=== PATIENT | female | born 1980 | race African-American/Black ===

== ENCOUNTER 2017-03-06 12:40 | Emergency (ER) | payer OTHER, MEDICAID ==
[~2017-03-06] VITALS: Ht 157.5 cm; Wt 63.5 kg
[2017-03-06 13:34] LABS: Urine Bilirubin Negative (Negative); Urine Blood Negative /uL (Negative); Urine Color Yellow (Yellow); Urine Glucose Normal (Normal); Urine Ketone Negative (Negative); Urine Mucus FEW (None Seen); Urine Nitrite Negative (Negative); Urine RBC 2 /hpf (0 - 4); Urine Squamous Epithelial Cell MOD /hpf (<5)
[2017-03-06] MEDS ORDERED: IPRATROPIUM BROM 0.5 MG/2.5ML INH SOL NEB ONE (16:00)
[2017-03-06] MEDS ORDERED: HYDROcodone-ACET 5/325MG TAB PO ONE (16:00)
[2017-03-06] MEDS ORDERED: ALBUTEROL SULF 2.5 MG/0.5ML(0.5%) NEB SOLN NEB ONE (16:00)
[2017-03-06 16:39] LABS: Basophils # (auto) 0 uL; Basophils % (auto) 0.2 % (0.0-2.0); DEFINITIVE VIEW TRANSMISSION; Eosinophils # (auto) 0 uL; Eosinophils % (auto) 0.3 % (0.0-7.0); Hematocrit 39.3 % (36.0-46.0); Hemoglobin 12.7 g/dL (12.2-16.2); Lymphocytes # (auto) 0.5 uL; Lymphocytes % (auto) 14.6 % (10.0-50.0); Mean Corpuscular Hemoglobin 26.9 pg (28.0-32.0); Mean Corpuscular Hgb Conc. 32.3 g/dL (32.0-36.0); Mean Corpuscular Volume 83.5 fL (80.0-100.0); Mean Platelet Volume 10.4 fL (7.4-10.4); Monocytes # (auto) 0 uL; Monocytes % (auto) 1.3 % (0.0-12.0); Neutrophils % (auto) 83.6 % (37.0-80.0); Platelet Count (auto) 448 10^3/uL (140-450); Red Cell Distribution Width 17.3 % (11.6-16.0); SUSPECT VIEW TRANSMISSION; White Blood Cell 3.6 10^3/uL (4.4-10.8)
[2017-03-06 16:41] VITALS: BP 129/96
[2017-03-06 16:51] LABS: Albumin 3.7 g/dL (3.4-5.0); Alkaline Phosphatase 81 U/L (45-117); Anion Gap 11 (5-15); Aspartate Aminotransferase 15 U/L (15-37); BUN/Creatinine Ratio 12.7; Bilirubin, Total 0.7 mg/dL (0.2-1.0); Blood Urea Nitrogen 10 mg/dL (7-18); Calcium 8.9 mg/dL (8.5-10.1); Carbon Dioxide 22 mmol/L (21-32); Chloride 109 mmol/L (98-107); GFR African American 105 mL/min; GFR Non-African American 87 mL/min; Glucose 95 mg/dL (74-106); Potassium 3.7 mmol/L (3.5-5.1); Sodium 142 mmol/L (136-145); Total Protein 7.6 g/dL (6.4-8.2)
[2017-03-06] MEDS ORDERED: KETOROLAC TROMETH 30 MG/ML 1ML VIAL IV ONE (17:00)
[2017-03-06 17:01] LABS: B-Type Natriuretic Peptide < 5.0 pg/mL (0-100); Temperature: 23.3 C (20.0-25.0)
== END 2017-03-06 17:39 | disposition home or self-care (01) ==
LOC: ER 12:46
DX: R07.89 Other chest pain (principal); J45.909 Unspecified asthma, uncomplicated
CPT/HCPCS: 36415; 71020; 80053; 81001; 81025; 83880; 84484; 85025; 93005; 94640; 96374; 99285; J1885

== ENCOUNTER 2017-10-01 20:54 | Emergency (ER) | payer OTHER, MEDICAID ==
[~2017-10-01] VITALS: Ht 157.5 cm; Wt 69.9 kg
[2017-10-01] MEDS ORDERED: IPRATROPIUM BROM 0.5 MG/2.5ML INH SOL NEB ONE ×2 (21:15→23:30)
[2017-10-01] MEDS ORDERED: ALBUTEROL SULF 2.5 MG/0.5ML(0.5%) NEB SOLN NEB ONE ×2 (21:15→23:30)
[2017-10-01 21:24] LABS: Basophils # (auto) 0.1 uL; Eosinophils # (auto) 0.1 uL; Eosinophils % (auto) 0.8 % (0.0-7.0); Monocytes # (auto) 1.1 uL
[2017-10-01 21:26] LABS: Basophils % (auto) 0.6 % (0.0-2.0); Hematocrit 34.7 % (36.0-46.0); Hemoglobin 11.3 g/dL (12.2-16.2); Lymphocytes # (auto) 2.3 uL; Lymphocytes % (auto) 14.8 % (10.0-50.0); Mean Corpuscular Hemoglobin 27.1 pg (28.0-32.0); Mean Corpuscular Hgb Conc. 32.5 g/dL (32.0-36.0); Mean Corpuscular Volume 83.3 fL (80.0-100.0); Monocytes % (auto) 7.3 % (0.0-12.0); Neutrophils # (auto) 11.9 uL; Neutrophils % (auto) 76.5 % (37.0-80.0); Platelet Count (auto) 228 10^3/uL (140-450); Red Cell Distribution Width 19.7 % (11.8-14.3); White Blood Cell 15.5 10^3/uL (4.4-10.8)
[2017-10-01 21:49] LABS: Albumin 3.6 g/dL (3.4-5.0); BUN/Creatinine Ratio 18.8; Bilirubin, Total 0.3 mg/dL (0.2-1.0); Calcium 8.2 mg/dL (8.5-10.1); Potassium 3.4 mmol/L (3.5-5.1); Total Protein 6.5 g/dL (6.4-8.2)
[2017-10-01] MEDS ORDERED: cefTRIAXone SOD 1,000 MG VL IM ONE (23:30)
[2017-10-01] MEDS ORDERED: methylPREDNISolone SOD SUCC 125 MG/2 ML VL IM ONE (23:30)
[2017-10-01 23:59] VITALS: BP 166/103
== END 2017-10-02 00:38 | disposition home or self-care (01) ==
LOC: ER 20:54
DX: J45.901 Unspecified asthma with (acute) exacerbation (principal); I10 Essential (primary) hypertension
CPT/HCPCS: 36415; 71010; 80053; 85025; 94640; 96372; 99285; J0696; J2930

== ENCOUNTER 2018-04-01 17:16 | Emergency (ER) | payer OTHER, MEDICAID ==
[~2018-04-01] VITALS: Ht 157.5 cm; Wt 70.3 kg
[2018-04-01 18:19] LABS: Basophils # (auto) 0.1 uL; Basophils % (auto) 0.6 % (0.0-2.0); Eosinophils # (auto) 0.1 uL; Monocytes # (auto) 0.5 uL; Nucleated Red Blood Cells % 0.1 %
[2018-04-01 18:21] LABS: Eosinophils % (auto) 0.9 % (0.0-7.0); Hematocrit 33.3 % (36.0-46.0); Hemoglobin 11.1 g/dL (12.2-16.2); Lymphocytes # (auto) 1.2 uL; Lymphocytes % (auto) 11.8 % (10.0-50.0); Mean Corpuscular Hemoglobin 26.6 pg (28.0-32.0); Mean Corpuscular Hgb Conc. 33.2 g/dL (32.0-36.0); Mean Corpuscular Volume 80.3 fL (80.0-100.0); Monocytes % (auto) 5.1 % (0.0-12.0); Neutrophils # (auto) 8.1 uL; Neutrophils % (auto) 81.6 % (37.0-80.0); Platelet Count (auto) 373 10^3/uL (140-450); Red Blood Cells 4.15 10^6/uL (4.0-5.20); Red Cell Distribution Width 19.6 % (11.8-14.3)
[2018-04-01 18:35] LABS: Albumin 3.4 g/dL (3.4-5.0); BUN/Creatinine Ratio 18.4; Calcium 8.2 mg/dL (8.5-10.1); Potassium 3.7 mmol/L (3.5-5.1)
[2018-04-01 18:36] LABS: INR 0.93 (0.9-1.15); Partial Thromboplastin Time 24.9 sec (23.78-33.04)
[2018-04-01 18:37] LABS: Bilirubin, Total 0.3 mg/dL (0.2-1.0); Total Protein 6.5 g/dL (6.4-8.2)
[2018-04-01 22:12] LABS: Urine Pregnacy Test Negative (Negative)
[2018-04-01 22:30] LABS: Amphetamine Screen, Urine NEGATIVE (NEGATIVE); Barbiturate Scree,Urine NEGATIVE (NEGATIVE); Benzodiazephine Screen, Urine NEGATIVE (NEGATIVE); Cannabinoid Screen, Urine NEGATIVE (NEGATIVE)
[2018-04-01] MEDS ORDERED: IPRATROPIUM BROM 0.5 MG/2.5ML INH SOL NEB ONE ×2 (22:30→23:30)
[2018-04-01] MEDS ORDERED: ONDANSETRON HCL 4 MG/2 ML VIAL IV ONE (22:30)
[2018-04-01] MEDS ORDERED: MORPHINE SULFATE 4 MG/ML SYR/VIAL IV ONE (22:30)
[2018-04-01] MEDS ORDERED: ALBUTEROL SULF 2.5 MG/0.5ML(0.5%) NEB SOLN NEB ONE ×2 (22:30→23:30)
[2018-04-01 22:38] LABS: Alcohol, Urine < 3.0 mg/dL (0-5); Cocaine Screen, Urine NEGATIVE (NEGATIVE); Opiate Scree,Urine NEGATIVE (NEGATIVE); Phencyclidine Screen, Urine POSITIVE (NEGATIVE)
[2018-04-01] MEDS ORDERED: HYDROcodone-ACET 10/325MG TAB PO ONE (22:45)
[2018-04-01] MEDS ORDERED: methylPREDNISolone SOD SUCC 125 MG/2 ML VL ONE (23:06)
[2018-04-01] MEDS ORDERED: FAMOTIDINE 20 MG TAB PO ONE (23:15)
[2018-04-01] MEDS ORDERED: cefTRIAXone 1GM/10ml IVPUSH 10 ML IV ONE (23:15)
[2018-04-01] MEDS ORDERED: methylPREDNISolone SOD SUCC 125 MG/2 ML VL IV ONE (23:15)
[2018-04-01] MEDS ORDERED: SODIUM CHLORIDE 0.9% 1,000 ML IV ONE (23:15)
[2018-04-02] MEDS ORDERED: MEPERIDINE HCL (25 MG/ML) 1ML VIAL ONE (00:41)
[2018-04-02] MEDS ORDERED: NALBUPHINE HCL 10 MG/1ml INJECTION IV ONE (00:45)
[2018-04-02] MEDS ORDERED: MEPERIDINE HCL (25 MG/ML) 1ML VIAL IV ONE (00:45)
[2018-04-02 02:10] VITALS: BP 146/87
== END 2018-04-02 02:30 | disposition home or self-care (01) ==
LOC: ER 17:16
DX: J20.9 Acute bronchitis, unspecified (principal); J45.909 Unspecified asthma, uncomplicated; R55 Syncope and collapse; M79.1 Myalgia
CPT/HCPCS: 36415; 70450; 71045; 80053; 80307; 81025; 82962; 84702; 85025; 85610; 85730; 93005; 94640; 96374; 96375; 99285; J2175; J2930

== ENCOUNTER 2018-04-17 05:29 | Emergency (ER) | payer OTHER, MEDICAID ==
[~2018-04-17] VITALS: Ht 157.5 cm; Wt 69.9 kg
[2018-04-17] MEDS ORDERED: ALBUTEROL SULF 2.5 MG/0.5ML(0.5%) NEB SOLN NEB ONE ×2 (06:00→10:45)
[2018-04-17] MEDS ORDERED: IPRATROPIUM BROM 0.5 MG/2.5ML INH SOL NEB ONE (06:00)
[2018-04-17] MEDS ORDERED: cefTRIAXone 1GM/10ml IVPUSH 10 ML IV ONE (07:45)
[2018-04-17] MEDS ORDERED: methylPREDNISolone SOD SUCC 125 MG/2 ML VL IV ONE (07:45)
[2018-04-17] MEDS ORDERED: KETOROLAC TROMETH 30 MG/ML 1ML VIAL IV ONE (08:30)
[2018-04-17 11:06] VITALS: BP 129/103
== END 2018-04-17 11:27 | disposition home or self-care (01) ==
LOC: ER 05:35
DX: J45.901 Unspecified asthma with (acute) exacerbation (principal)
CPT/HCPCS: 71045; 94640; 96374; 96375; 99284; J1885; J2930

== ENCOUNTER 2018-06-22 11:28 | Inpatient (IN) | payer OTHER, MEDICAID ==
[~2018-06-22] VITALS: Ht 157.5 cm; Wt 80.5 kg
[2018-06-22] MEDS ORDERED: SODIUM CHLORIDE 0.9% 1,000 ML IV ONE (12:05)
[2018-06-22] MEDS ORDERED: ALBUTEROL SULF 2.5 MG/0.5ML(0.5%) NEB SOLN HHN ONE (12:15)
[2018-06-22] MEDS ORDERED: methylPREDNISolone SOD SUCC 125 MG/2 ML VL IV ONE (12:15)
[2018-06-22] MEDS ORDERED: IPRATROPIUM BROM 0.5 MG/2.5ML INH SOL HHN ONE (12:15)
[2018-06-22 12:27] LABS: Basophils # (auto) 0.1 uL; Eosinophils # (auto) 0.4 uL; Hematocrit 35.5 % (36.0-46.0); Hemoglobin 11.2 g/dL (12.2-16.2); Mean Corpuscular Hgb Conc. 31.6 g/dL (32.0-36.0)
[2018-06-22 12:29] LABS: Basophils % (auto) 1.2 % (0.0-2.0); Eosinophils % (auto) 5.1 % (0.0-7.0); Lymphocytes # (auto) 1.9 uL; Lymphocytes % (auto) 22.6 % (10.0-50.0); Mean Corpuscular Hemoglobin 24.9 pg (28.0-32.0); Mean Corpuscular Volume 78.8 fL (80.0-100.0); Monocytes # (auto) 0.8 uL; Monocytes % (auto) 9.8 % (0.0-12.0); Neutrophils # (auto) 5.2 uL; Neutrophils % (auto) 61.3 % (37.0-80.0); Nucleated Red Blood Cells % 0.1 %; Platelet Count (auto) 282 10^3/uL (140-450); Red Blood Cells 4.51 10^6/uL (4.0-5.20); Red Cell Distribution Width 19.4 % (11.8-14.3); White Blood Cell 8.5 10^3/uL (4.4-10.8)
[2018-06-22] MEDS ORDERED: MORPHINE SULF INJ 2 MG/ML SYRINGE 1ML IV ONE (12:30)
[2018-06-22] MEDS ORDERED: ONDANSETRON HCL 4 MG/2 ML VIAL IV ONE (12:30)
[2018-06-22 12:46] LABS: Alanine Aminotransferase 19 U/L (13-56); Albumin 3.7 g/dL (3.4-5.0); Alkaline Phosphatase 62 U/L (45-117); Anion Gap 7 (5-15); Aspartate Aminotransferase 10 U/L (15-37); BUN/Creatinine Ratio 10.8; Bilirubin, Total 0.2 mg/dL (0.2-1.0); Blood Urea Nitrogen 9 mg/dL (7-18); Calcium 7.7 mg/dL (8.5-10.1); Carbon Dioxide 22 mmol/L (21-32); Chloride 108 mmol/L (98-107); GFR African American 99 mL/min; GFR Non-African American 82 mL/min; Glucose 83 mg/dL (74-106); Magnesium 2.3 mg/dL (1.6-2.6); Potassium 3.4 mmol/L (3.5-5.1); Sodium 137 mmol/L (136-145); Total Protein 6.7 g/dL (6.4-8.2)
[2018-06-22] MEDS ORDERED: MORPHINE SULF INJ 2 MG/ML SYRINGE 1ML IV PRN (13:00)
[2018-06-22] MEDS ORDERED: NITROGLYCERIN 0.4 MG SL TAB SL PRN (13:00)
[2018-06-22] MEDS ORDERED: ACETAMINOPHEN 500 MG TAB PO PRN (13:00)
[2018-06-22] MEDS ORDERED: LACTULOSE 20Gm/30ML SOLN PO PRN (13:00)
[2018-06-22] MEDS: ENOXAPARIN SOD 40 MG/0.4 ML SYRINGE SC SCH (13:01)
[2018-06-22] MEDS: DOXYCYCLINE 100MG/250ML 250 ML IV SCH (13:09)
[2018-06-22] MEDS: PANTOPRAZOLE 40 MG TAB PO SCH (13:09)
[2018-06-22] MEDS: SODIUM CHLORIDE 0.9% 1,000 ML IV SCH (13:09)
[2018-06-22] MEDS: ALBUTEROL SULF 2.5 MG/0.5ML(0.5%) NEB SOLN NEB PRN (16:12)
[2018-06-22] MEDS: HYDROcodone-ACET 5/325MG TAB PO PRN (16:18)
[2018-06-22 17:47] VITALS: BP 141/83
[2018-06-22] MEDS: ALBUTEROL SULF 2.5 MG/0.5ML(0.5%) NEB SOLN NEB SCH (18:04)
[2018-06-22] MEDS: IPRATROPIUM BROM 0.5 MG/2.5ML INH SOL NEB SCH (18:04)
[2018-06-22] MEDS: methylPREDNISolone SOD SUCC 40 MG/ML VL IV SCH (18:21)
[2018-06-22] MEDS: BUDESONIDE (INHALATION) 0.5 MG/2 ML NEB NEB SCH (20:20)
[2018-06-22] MEDS: PROMETHAZINE HCL 25 MG/ML 1ML IV PRN ×2 (20:25→21:07)
[2018-06-22] MEDS: MORPHINE SULFATE 4 MG/ML SYR/VIAL IV PRN ×2 (20:25→21:08)
[2018-06-22 20:59] LABS: Urine Bacteria NONE SEEN /hpf (None Seen); Urine Blood Negative /uL (Negative); Urine Mucus FEW (None Seen); Urine Specific Gravity 1.013 (1.001-1.035); Urine WBC 6 /hpf (0 - 5)
[2018-06-23] MEDS: ALBUTEROL SULF 2.5 MG/0.5ML(0.5%) NEB SOLN NEB SCH ×4 (00:22→18:00)
[2018-06-23] MEDS: IPRATROPIUM BROM 0.5 MG/2.5ML INH SOL NEB SCH ×4 (00:22→18:00)
[2018-06-23] MEDS: DOXYCYCLINE 100MG/250ML 250 ML IV SCH (00:54)
[2018-06-23] MEDS: SODIUM CHLORIDE 0.9% 1,000 ML IV SCH ×2 (02:21→15:34)
[2018-06-23] MEDS: MORPHINE SULFATE 4 MG/ML SYR/VIAL IV PRN ×4 (05:39→23:21)
[2018-06-23] MEDS: BUDESONIDE (INHALATION) 0.5 MG/2 ML NEB NEB SCH ×2 (06:53→18:00)
[2018-06-23] MEDS: methylPREDNISolone SOD SUCC 40 MG/ML VL IV SCH ×4 (07:34→18:00)
[2018-06-23] MEDS: ENOXAPARIN SOD 40 MG/0.4 ML SYRINGE SC SCH (10:00)
[2018-06-23] MEDS: PROMETHAZINE HCL 25 MG/ML 1ML IV PRN (10:16)
[2018-06-23] MEDS: PANTOPRAZOLE 40 MG TAB PO SCH (10:17)
[2018-06-23] MEDS ORDERED: cefTRIAXone 1GM/10ml IVPUSH 10 ML IV ONE (10:30)
[2018-06-23] MEDS: ALBUTEROL SULF 2.5 MG/0.5ML(0.5%) NEB SOLN NEB PRN ×3 (10:40→22:06)
[2018-06-23] MEDS: PROMETHAZINE W/CODEINE 5 ML ORAL SYRUP PO PRN ×4 (11:07→23:21)
[2018-06-23] MEDS: HYDROcodone-ACET 5/325MG TAB PO PRN (16:51)
[2018-06-24] MEDS: methylPREDNISolone SOD SUCC 40 MG/ML VL IV SCH ×4 (00:45→18:08)
[2018-06-24] MEDS ORDERED: MORPHINE SULF INJ 2 MG/ML SYRINGE 1ML IV ONE (01:45)
[2018-06-24 03:40] VITALS: BP 142/85
[2018-06-24] MEDS: PROMETHAZINE W/CODEINE 5 ML ORAL SYRUP PO PRN ×4 (04:01→18:00)
[2018-06-24] MEDS: MORPHINE SULFATE 4 MG/ML SYR/VIAL IV PRN (04:02)
[2018-06-24] MEDS: PROMETHAZINE HCL 25 MG/ML 1ML IV PRN ×4 (04:02→21:12)
[2018-06-24] MEDS: ALBUTEROL SULF 2.5 MG/0.5ML(0.5%) NEB SOLN NEB PRN (04:17)
[2018-06-24] MEDS ORDERED: FLUT0.05 NAS (04:49)
[2018-06-24] MEDS ORDERED: DICY20TA66 PO (04:49)
[2018-06-24] MEDS ORDERED: OMEP20TA PO (04:49)
[2018-06-24] MEDS: SODIUM CHLORIDE 0.9% 1,000 ML IV SCH ×2 (04:51→18:12)
[2018-06-24 05:00] VITALS: BP 142/85
[2018-06-24] MEDS: HYDROcodone-ACET 5/325MG TAB PO PRN ×3 (05:23→18:00)
[2018-06-24] MEDS: ALBUTEROL SULF 2.5 MG/0.5ML(0.5%) NEB SOLN NEB SCH ×5 (06:54→23:05)
[2018-06-24] MEDS: IPRATROPIUM BROM 0.5 MG/2.5ML INH SOL NEB SCH ×5 (06:54→23:05)
[2018-06-24] MEDS: BUDESONIDE (INHALATION) 0.5 MG/2 ML NEB NEB SCH ×2 (06:54→18:57)
[2018-06-24] MEDS: cefTRIAXone 1GM/10ml IVPUSH 10 ML IV SCH (08:34)
[2018-06-24] MEDS: MORPHINE SULF INJ 2 MG/ML SYRINGE 1ML IV PRN ×4 (08:35→21:12)
[2018-06-24 09:13] VITALS: BP 133/79
[2018-06-24] MEDS: ENOXAPARIN SOD 40 MG/0.4 ML SYRINGE SC SCH (10:00)
[2018-06-24] MEDS: AZITHROMYCIN 500MG/ 250ML 250 ML IV SCH (10:20)
[2018-06-24] MEDS: PANTOPRAZOLE 40 MG TAB PO SCH (10:21)
[2018-06-24 13:00] VITALS: BP 131/75
[2018-06-24 16:58] VITALS: BP 99/69
[2018-06-24 22:01] VITALS: BP 151/94
[2018-06-25] MEDS: TEMAZEPAM 15 MG CAP PO PRN ×2 (00:01→21:51)
[2018-06-25] MEDS: HYDROcodone-ACET 5/325MG TAB PO PRN ×4 (00:01→07:55)
[2018-06-25] MEDS: PROMETHAZINE W/CODEINE 5 ML ORAL SYRUP PO PRN ×6 (00:02→20:42)
[2018-06-25] MEDS: PROMETHAZINE HCL 25 MG/ML 1ML IV PRN ×2 (03:18→09:44)
[2018-06-25] MEDS: MORPHINE SULF INJ 2 MG/ML SYRINGE 1ML IV PRN ×2 (03:19→09:43)
[2018-06-25 04:37] VITALS: BP 147/85
[2018-06-25] MEDS: methylPREDNISolone SOD SUCC 40 MG/ML VL IV SCH ×4 (06:00→17:35)
[2018-06-25] MEDS: ALBUTEROL SULF 2.5 MG/0.5ML(0.5%) NEB SOLN NEB SCH ×3 (06:41→18:31)
[2018-06-25] MEDS: IPRATROPIUM BROM 0.5 MG/2.5ML INH SOL NEB SCH ×3 (06:41→18:31)
[2018-06-25] MEDS: BUDESONIDE (INHALATION) 0.5 MG/2 ML NEB NEB SCH ×2 (06:41→18:31)
[2018-06-25 09:00] VITALS: BP 141/82
[2018-06-25] MEDS: cefTRIAXone 1GM/10ml IVPUSH 10 ML IV SCH (09:26)
[2018-06-25] MEDS: ENOXAPARIN SOD 40 MG/0.4 ML SYRINGE SC SCH (10:04)
[2018-06-25] MEDS: PANTOPRAZOLE 40 MG TAB PO SCH (10:04)
[2018-06-25] MEDS: AZITHROMYCIN 500MG/ 250ML 250 ML IV SCH (10:04)
[2018-06-25] MEDS: SODIUM CHLORIDE 0.9% 1,000 ML IV SCH ×2 (10:04→21:52)
[2018-06-25] MEDS ORDERED: HYDROcodone-ACET 5/325MG TAB PO PRN (12:30)
[2018-06-25 13:00] VITALS: BP 140/88
[2018-06-25] MEDS: MORPHINE SULFATE 4 MG/ML SYR/VIAL IV PRN ×3 (14:46→23:16)
[2018-06-25 17:00] VITALS: BP 156/105
[2018-06-25] MEDS ORDERED: DIPH25CA46 PO (20:37)
[2018-06-25 20:58] VITALS: BP 148/92
[2018-06-25] MEDS: ALBUTEROL SULF 2.5 MG/0.5ML(0.5%) NEB SOLN NEB PRN (21:26)
[2018-06-25] MEDS: diphenhdrAMINE HCL 25 MG CAP PO PRN (23:16)
[2018-06-25 23:46] VITALS: BP 148/92
[2018-06-26] MEDS: methylPREDNISolone SOD SUCC 40 MG/ML VL IV SCH ×4 (00:16→18:02)
[2018-06-26] MEDS: PROMETHAZINE HCL 25 MG/ML 1ML IV PRN ×3 (00:16→21:38)
[2018-06-26] MEDS: IPRATROPIUM BROM 0.5 MG/2.5ML INH SOL NEB SCH ×4 (00:29→18:50)
[2018-06-26] MEDS: ALBUTEROL SULF 2.5 MG/0.5ML(0.5%) NEB SOLN NEB SCH ×4 (00:29→18:50)
[2018-06-26] MEDS: MORPHINE SULFATE 4 MG/ML SYR/VIAL IV PRN ×5 (03:04→21:38)
[2018-06-26] MEDS: ALBUTEROL SULF 2.5 MG/0.5ML(0.5%) NEB SOLN NEB PRN ×3 (03:15→21:00)
[2018-06-26] MEDS: diphenhdrAMINE HCL 25 MG CAP PO PRN ×2 (04:01→20:25)
[2018-06-26] MEDS: PROMETHAZINE W/CODEINE 5 ML ORAL SYRUP PO PRN ×3 (04:02→20:25)
[2018-06-26 05:25] LABS: Basophils # (auto) 0 uL; Eosinophils # (auto) 0 uL; Monocytes # (auto) 0.9 uL
[2018-06-26 05:27] LABS: Basophils % (auto) 0.1 % (0.0-2.0); Hematocrit 30.5 % (36.0-46.0); Hemoglobin 9.7 g/dL (12.2-16.2); Lymphocytes # (auto) 0.5 uL; Lymphocytes % (auto) 2.9 % (10.0-50.0); Mean Corpuscular Hemoglobin 25.1 pg (28.0-32.0); Mean Corpuscular Hgb Conc. 31.8 g/dL (32.0-36.0); Mean Corpuscular Volume 78.8 fL (80.0-100.0); Monocytes % (auto) 5.3 % (0.0-12.0); Neutrophils # (auto) 16.2 uL; Neutrophils % (auto) 91.7 % (37.0-80.0); Nucleated Red Blood Cells % 0.1 %; Platelet Count (auto) 255 10^3/uL (140-450); Red Blood Cells 3.87 10^6/uL (4.0-5.20); White Blood Cell 17.7 10^3/uL (4.4-10.8)
[2018-06-26 05:45] VITALS: BP 140/97
[2018-06-26 05:51] LABS: BUN/Creatinine Ratio 16.7; Calcium 7.7 mg/dL (8.5-10.1); Potassium 3.2 mmol/L (3.5-5.1)
[2018-06-26] MEDS: BUDESONIDE (INHALATION) 0.5 MG/2 ML NEB NEB SCH ×3 (06:16→18:50)
[2018-06-26 09:00] VITALS: BP 144/89
[2018-06-26] MEDS ORDERED: cefTRIAXone 1GM/10ml IVPUSH 10 ML IV SCH (09:00)
[2018-06-26] MEDS: ENOXAPARIN SOD 40 MG/0.4 ML SYRINGE SC SCH (10:00)
[2018-06-26] MEDS: AZITHROMYCIN 500MG/ 250ML 250 ML IV SCH (11:10)
[2018-06-26] MEDS: PANTOPRAZOLE 40 MG TAB PO SCH (11:10)
[2018-06-26] MEDS: POTASSIUM CHL 20 Meq TABLET PO SCH ×2 (11:10→21:18)
[2018-06-26] MEDS: SODIUM CHLORIDE 0.9% 1,000 ML IV SCH ×2 (11:17→21:37)
[2018-06-26 17:00] VITALS: BP 151/97
[2018-06-26 18:00] VITALS: BP_SYST 164; BP_SYST 170; BP_DIAS 106; BP_DIAS 76
[2018-06-26] MEDS: TEMAZEPAM 15 MG CAP PO PRN (21:19)
[2018-06-27] VITALS (8 sets, daily range): BP systolic 125–152; BP diastolic 71–97
[2018-06-27] MEDS: ALBUTEROL SULF 2.5 MG/0.5ML(0.5%) NEB SOLN NEB SCH ×6 (00:03→22:11)
[2018-06-27] MEDS: IPRATROPIUM BROM 0.5 MG/2.5ML INH SOL NEB SCH ×5 (00:03→22:10)
[2018-06-27] MEDS: methylPREDNISolone SOD SUCC 40 MG/ML VL IV SCH ×4 (00:03→21:56)
[2018-06-27 06:09] LABS: Eosinophils # (auto) 0 uL; Monocytes # (auto) 0.9 uL
[2018-06-27 06:11] LABS: Basophils # (auto) 0.1 uL; Basophils % (auto) 0.8 % (0.0-2.0); Hematocrit 30.3 % (36.0-46.0); Hemoglobin 9.7 g/dL (12.2-16.2); Lymphocytes # (auto) 0.9 uL; Lymphocytes % (auto) 4.8 % (10.0-50.0); Mean Corpuscular Hemoglobin 25.2 pg (28.0-32.0); Mean Corpuscular Hgb Conc. 32.1 g/dL (32.0-36.0); Mean Corpuscular Volume 78.6 fL (80.0-100.0); Monocytes % (auto) 4.6 % (0.0-12.0); Neutrophils # (auto) 17.3 uL; Neutrophils % (auto) 89.8 % (37.0-80.0); Nucleated Red Blood Cells % 0.1 %; Platelet Count (auto) 247 10^3/uL (140-450); Red Blood Cells 3.86 10^6/uL (4.0-5.20); Red Cell Distribution Width 18.9 % (11.8-14.3); White Blood Cell 19.3 10^3/uL (4.4-10.8)
[2018-06-27 06:21] LABS: Calcium 7.9 mg/dL (8.5-10.1); Potassium 4.1 mmol/L (3.5-5.1)
[2018-06-27] MEDS: MORPHINE SULFATE 4 MG/ML SYR/VIAL IV PRN ×4 (06:22→20:02)
[2018-06-27 06:23] LABS: BUN/Creatinine Ratio 16.7
[2018-06-27] MEDS: PROMETHAZINE W/CODEINE 5 ML ORAL SYRUP PO PRN ×3 (06:24→18:11)
[2018-06-27] MEDS: PANTOPRAZOLE 40 MG TAB PO SCH (09:35)
[2018-06-27] MEDS: PROMETHAZINE HCL 25 MG/ML 1ML IV PRN ×2 (09:35→17:07)
[2018-06-27] MEDS: diphenhdrAMINE HCL 25 MG CAP PO PRN ×2 (09:35→16:25)
[2018-06-27] MEDS: AZITHROMYCIN 500MG/ 250ML 250 ML IV SCH (09:35)
[2018-06-27] MEDS: ENOXAPARIN SOD 40 MG/0.4 ML SYRINGE SC SCH (09:36)
[2018-06-27] MEDS: ALBUTEROL SULF 2.5 MG/0.5ML(0.5%) NEB SOLN NEB PRN ×2 (10:12→16:25)
[2018-06-27] MEDS: SODIUM CHLORIDE 0.9% 1,000 ML IV SCH (13:39)
[2018-06-27] MEDS: TEMAZEPAM 15 MG CAP PO PRN (21:56)
[2018-06-27] MEDS: BUDESONIDE (INHALATION) 0.5 MG/2 ML NEB NEB SCH (22:10)
[2018-06-27] MEDS: ACETYLCYSTEINE 10 %(100MG/ML) SOL 4ML NEB SCH (22:10)
[2018-06-28] VITALS (7 sets, daily range): BP systolic 141–160; BP diastolic 87–108
[2018-06-28] MEDS: PROMETHAZINE W/CODEINE 5 ML ORAL SYRUP PO PRN ×4 (00:23→21:21)
[2018-06-28] MEDS: MORPHINE SULFATE 4 MG/ML SYR/VIAL IV PRN ×6 (00:23→20:34)
[2018-06-28] MEDS: PROMETHAZINE HCL 25 MG/ML 1ML IV PRN ×3 (01:14→17:57)
[2018-06-28] MEDS: ALBUTEROL SULF 2.5 MG/0.5ML(0.5%) NEB SOLN NEB SCH ×6 (02:11→22:32)
[2018-06-28] MEDS: IPRATROPIUM BROM 0.5 MG/2.5ML INH SOL NEB SCH ×6 (02:11→22:32)
[2018-06-28] MEDS: SODIUM CHLORIDE 0.9% 1,000 ML IV SCH (02:30)
[2018-06-28] MEDS: diphenhdrAMINE HCL 25 MG CAP PO PRN ×2 (05:00→20:36)
[2018-06-28 05:55] LABS: Hemoglobin 9.3 g/dL (12.2-16.2)
[2018-06-28 05:58] LABS: Hematocrit 28.9 % (36.0-46.0); Mean Corpuscular Hemoglobin 25.1 pg (28.0-32.0); Mean Corpuscular Hgb Conc. 32.2 g/dL (32.0-36.0); Platelet Count (auto) 247 10^3/uL (140-450); Red Cell Distribution Width 18.6 % (11.8-14.3); White Blood Cell 22.3 10^3/uL (4.4-10.8)
[2018-06-28] MEDS: methylPREDNISolone SOD SUCC 40 MG/ML VL IV SCH ×3 (06:09→22:04)
[2018-06-28 06:18] LABS: Band Neutrophils % (manual) 0; Basophils % (manual) 0 (0.0-2.0); Blast Cells 0; Eosinophils % (manual) 0 (0-7); Metamyelocytes % 0; Myelocytes % 0; Promyelocytes % 0; Reactive Lymphocytes 0
[2018-06-28 06:25] LABS: BUN/Creatinine Ratio 19.2; Calcium 7.9 mg/dL (8.5-10.1); Potassium 3.4 mmol/L (3.5-5.1)
[2018-06-28 07:24] LABS: Lymphocytes % (manual) 5 (10.0-50.0); Monocytes % (manual) 6 (0-12)
[2018-06-28] MEDS: ACETYLCYSTEINE 10 %(100MG/ML) SOL 4ML NEB SCH ×3 (07:26→18:42)
[2018-06-28] MEDS: AZITHROMYCIN 500MG/ 250ML 250 ML IV SCH (08:17)
[2018-06-28] MEDS: PANTOPRAZOLE 40 MG TAB PO SCH (08:17)
[2018-06-28] MEDS: ENOXAPARIN SOD 40 MG/0.4 ML SYRINGE SC SCH (08:17)
[2018-06-28] MEDS ORDERED: POTASSIUM EFFERVESENT TAB 25 MEQ PO ONE (10:00)
[2018-06-28] MEDS: BUDESONIDE (INHALATION) 0.5 MG/2 ML NEB NEB SCH ×2 (10:49→18:37)
[2018-06-28] MEDS ORDERED: cloNIDine HCL 0.1 MG TAB PO PRN (13:45)
[2018-06-28] MEDS: TEMAZEPAM 15 MG CAP PO PRN (22:04)
[2018-06-29] MEDS: PROMETHAZINE HCL 25 MG/ML 1ML IV PRN ×4 (00:04→23:39)
[2018-06-29] MEDS: MORPHINE SULFATE 4 MG/ML SYR/VIAL IV PRN ×5 (00:52→21:49)
[2018-06-29] MEDS: diphenhdrAMINE HCL 25 MG CAP PO PRN ×4 (00:52→20:11)
[2018-06-29] MEDS: ALBUTEROL SULF 2.5 MG/0.5ML(0.5%) NEB SOLN NEB SCH ×7 (02:26→22:35)
[2018-06-29] MEDS: IPRATROPIUM BROM 0.5 MG/2.5ML INH SOL NEB SCH ×7 (02:26→22:35)
[2018-06-29] MEDS: PROMETHAZINE W/CODEINE 5 ML ORAL SYRUP PO PRN ×4 (03:23→22:39)
[2018-06-29] MEDS: LORazepam 0.5 MG TAB PO PRN ×3 (03:23→20:11)
[2018-06-29 05:00] VITALS: BP 149/98
[2018-06-29] MEDS: methylPREDNISolone SOD SUCC 40 MG/ML VL IV SCH ×3 (06:09→21:49)
[2018-06-29] MEDS: ACETYLCYSTEINE 10 %(100MG/ML) SOL 4ML NEB SCH ×4 (07:44→22:36)
[2018-06-29 08:17] LABS: Hemoglobin 9.5 g/dL (12.2-16.2)
[2018-06-29 08:19] LABS: Hematocrit 30.3 % (36.0-46.0); Mean Corpuscular Hemoglobin 24.5 pg (28.0-32.0); Mean Corpuscular Hgb Conc. 31.5 g/dL (32.0-36.0); Mean Corpuscular Volume 77.7 fL (80.0-100.0); Platelet Count (auto) 252 10^3/uL (140-450); Red Cell Distribution Width 18.7 % (11.8-14.3); White Blood Cell 26.8 10^3/uL (4.4-10.8)
[2018-06-29 08:23] LABS: Band Neutrophils % (manual) 0; Basophils % (manual) 0 (0.0-2.0); Blast Cells 0; Eosinophils % (manual) 0 (0-7); Metamyelocytes % 0; Myelocytes % 0; Promyelocytes % 0; Reactive Lymphocytes 0
[2018-06-29 08:28] LABS: BUN/Creatinine Ratio 26.3; Calcium 8.1 mg/dL (8.5-10.1); Potassium 3.9 mmol/L (3.5-5.1)
[2018-06-29 09:00] VITALS: BP 145/94
[2018-06-29] MEDS: ENOXAPARIN SOD 40 MG/0.4 ML SYRINGE SC SCH (10:00)
[2018-06-29] MEDS: PANTOPRAZOLE 40 MG TAB PO SCH (10:17)
[2018-06-29] MEDS: AZITHROMYCIN 500MG/ 250ML 250 ML IV SCH (10:17)
[2018-06-29] MEDS: BUDESONIDE (INHALATION) 0.5 MG/2 ML NEB NEB SCH ×2 (10:49→22:35)
[2018-06-29 11:38] LABS: Lymphocytes % (manual) 5 (10.0-50.0); Monocytes % (manual) 3 (0-12)
[2018-06-29 13:00] VITALS: BP 158/95
[2018-06-29 17:19] VITALS: BP 150/94
[2018-06-29 20:00] VITALS: BP 145/97
[2018-06-29 22:00] VITALS: BP 145/97
[2018-06-29] MEDS: TEMAZEPAM 15 MG CAP PO PRN (22:38)
[2018-06-30] MEDS: diphenhdrAMINE HCL 25 MG CAP PO PRN ×3 (00:17→10:30)
[2018-06-30] MEDS: MORPHINE SULFATE 4 MG/ML SYR/VIAL IV PRN ×3 (01:53→10:29)
[2018-06-30] MEDS: ALBUTEROL SULF 2.5 MG/0.5ML(0.5%) NEB SOLN NEB SCH ×4 (02:55→14:34)
[2018-06-30] MEDS: IPRATROPIUM BROM 0.5 MG/2.5ML INH SOL NEB SCH ×4 (02:56→14:34)
[2018-06-30 05:00] VITALS: BP 152/79
[2018-06-30] MEDS: LORazepam 0.5 MG TAB PO PRN (05:02)
[2018-06-30] MEDS: PROMETHAZINE W/CODEINE 5 ML ORAL SYRUP PO PRN ×2 (05:03→11:38)
[2018-06-30 06:01] LABS: BUN/Creatinine Ratio 24.5; Calcium 8.1 mg/dL (8.5-10.1); Potassium 3.6 mmol/L (3.5-5.1)
[2018-06-30] MEDS: methylPREDNISolone SOD SUCC 40 MG/ML VL IV SCH ×2 (06:04→13:00)
[2018-06-30] MEDS: PROMETHAZINE HCL 25 MG/ML 1ML IV PRN (06:05)
[2018-06-30 06:06] LABS: Hematocrit 32.3 % (36.0-46.0); Hemoglobin 9.7 g/dL (12.2-16.2); Mean Corpuscular Hemoglobin 24.9 pg (28.0-32.0); Mean Corpuscular Hgb Conc. 30.1 g/dL (32.0-36.0); Mean Corpuscular Volume 82.7 fL (80.0-100.0); Platelet Count (auto) 244 10^3/uL (140-450); Red Cell Distribution Width 19.3 % (11.8-14.3); White Blood Cell 28.1 10^3/uL (4.4-10.8)
[2018-06-30 06:18] LABS: Band Neutrophils % (manual) 0; Basophils % (manual) 0 (0.0-2.0); Blast Cells 0; Eosinophils % (manual) 0 (0-7); Myelocytes % 0; Promyelocytes % 0; Reactive Lymphocytes 0
[2018-06-30] MEDS: ACETYLCYSTEINE 10 %(100MG/ML) SOL 4ML NEB SCH ×2 (06:23→14:34)
[2018-06-30 08:00] VITALS: BP 157/101
[2018-06-30 08:00] LABS: Lymphocytes % (manual) 2 (10.0-50.0); Metamyelocytes % 1; Monocytes % (manual) 4 (0-12)
[2018-06-30 08:25] VITALS: BP 157/101
[2018-06-30] MEDS: BUDESONIDE (INHALATION) 0.5 MG/2 ML NEB NEB SCH (09:38)
[2018-06-30] MEDS: ENOXAPARIN SOD 40 MG/0.4 ML SYRINGE SC SCH (10:00)
[2018-06-30] MEDS: PANTOPRAZOLE 40 MG TAB PO SCH (10:29)
[2018-06-30] MEDS: AZITHROMYCIN 500MG/ 250ML 250 ML IV SCH (10:36)
[2018-06-30 12:00] VITALS: BP 158/87
== END 2018-06-30 17:30 | disposition home or self-care (01) | DRG 189 ==
LOC: ER 11:28 → TELE 11:29 → TELE-WESTW 06-24 03:13
PROVIDERS: ADMIT Internal Medicine; ATTEND Internal Medicine
DX: J96.00 Acute respiratory failure, unspecified whether with hypoxia or hypercapnia (principal); N39.0 Urinary tract infection, site not specified; J45.902 Unspecified asthma with status asthmaticus; E87.6 Hypokalemia; D63.8 Anemia in other chronic diseases classified elsewhere; E66.9 Obesity, unspecified; J44.9 Chronic obstructive pulmonary disease, unspecified; Z99.81 Dependence on supplemental oxygen; Z88.8 Allergy status to other drugs, medicaments and biological substances; Z79.899 Other long term (current) drug therapy; Z68.32 Body mass index [BMI] 32.0-32.9, adult
CPT/HCPCS: 36415; 70450; 71045; 71046; 73502; 73630; 80048; 80053; 81001; 83735; 84484; 85007; 85025; 85027; 87070; 87086; 87205; 93005; 93306; 94640; 94644; 94761; 96361; 96374; 96375; 97163; A6257; J0696; J2405; J3490

== ENCOUNTER 2018-06-30 23:21 | Inpatient (IN) | payer OTHER, MEDICAID ==
[~2018-06-30] VITALS: Ht 154.9 cm; Wt 91.5 kg
[~2018-06-30 23:21] MED LIST: DICY20TA66 PO; DIPH25CA46 PO; FLUT0.05 NAS; OMEP20TA PO
[2018-07-01 00:07] LABS: Hematocrit 30.2 % (36.0-46.0)
[2018-07-01 00:08] LABS: Hemoglobin 9.6 g/dL (12.2-16.2); Mean Corpuscular Hemoglobin 24.7 pg (28.0-32.0); Mean Corpuscular Hgb Conc. 31.8 g/dL (32.0-36.0); Mean Corpuscular Volume 77.6 fL (80.0-100.0); Platelet Count (auto) 258 10^3/uL (140-450); Red Blood Cells 3.89 10^6/uL (4.0-5.20); Red Cell Distribution Width 18.9 % (11.8-14.3)
[2018-07-01 00:18] LABS: White Blood Cell 30.9 10^3/uL (4.4-10.8)
[2018-07-01 00:19] LABS: Band Neutrophils % (manual) 0; Basophils % (manual) 0 (0.0-2.0); Blast Cells 0; Eosinophils % (manual) 0 (0-7); Myelocytes % 0; Promyelocytes % 0; Reactive Lymphocytes 0
[2018-07-01 00:21] LABS: Alanine Aminotransferase 23 U/L (13-56); Anion Gap 10 (5-15); Aspartate Aminotransferase 17 U/L (15-37); BUN/Creatinine Ratio 28.6; Blood Urea Nitrogen 24 mg/dL (7-18); Calcium 7.5 mg/dL (8.5-10.1); Carbon Dioxide 28 mmol/L (21-32); Chloride 103 mmol/L (98-107); GFR African American 98 mL/min; GFR Non-African American 81 mL/min; Glucose 98 mg/dL (74-106); Potassium 3.8 mmol/L (3.5-5.1); Sodium 141 mmol/L (136-145)
[2018-07-01 00:23] LABS: INR 0.88 (0.9-1.15); Partial Thromboplastin Time 19.9 sec (23.78-33.04); Prothrombin Time 9.5 sec (9.27-12.13)
[2018-07-01 00:26] LABS: Alkaline Phosphatase 68 U/L (45-117); Bilirubin, Total 0.2 mg/dL (0.2-1.0); Total Protein 6.2 g/dL (6.4-8.2)
[2018-07-01 01:24] LABS: Lymphocytes % (manual) 3 (10.0-50.0); Metamyelocytes % 1; Monocytes % (manual) 7 (0-12)
[2018-07-01] MEDS ORDERED: ALBUTEROL SULF 2.5 MG/0.5ML(0.5%) NEB SOLN NEB ONE (02:00)
[2018-07-01] MEDS ORDERED: cefTRIAXone 1GM/10ml IVPUSH 10 ML IV ONE (02:00)
[2018-07-01] MEDS ORDERED: IPRATROPIUM BROM 0.5 MG/2.5ML INH SOL NEB ONE (02:00)
[2018-07-01] MEDS ORDERED: methylPREDNISolone SOD SUCC 125 MG/2 ML VL IV ONE (02:00)
[2018-07-01] MEDS: MAGNESIUM SULFATE 1GM/100ML 100 ML IV SCH ×2 (02:00→03:20)
[2018-07-01] MEDS ORDERED: ACETAMINOPHEN 500 MG TAB PO PRN (04:15)
[2018-07-01] MEDS: DOXYCYCLINE 100MG/250ML 250 ML IV SCH ×2 (05:45→17:57)
[2018-07-01] MEDS: ALBUTEROL SULF 2.5 MG/0.5ML(0.5%) NEB SOLN NEB SCH ×5 (06:06→21:57)
[2018-07-01] MEDS: IPRATROPIUM BROM 0.5 MG/2.5ML INH SOL NEB SCH ×5 (06:07→21:56)
[2018-07-01] MEDS: methylPREDNISolone SOD SUCC 40 MG/ML VL IV SCH ×3 (06:17→22:10)
[2018-07-01 08:30] VITALS: BP 153/79
[2018-07-01] MEDS: FUROSEMIDE 20 MG/2 ML VIAL IV SCH (10:25)
[2018-07-01] MEDS: PANTOPRAZOLE 40 MG TAB PO SCH (10:26)
[2018-07-01] MEDS: amLODIPine BESYLATE 5 MG TAB PO SCH (10:26)
[2018-07-01 12:30] VITALS: BP 139/92
[2018-07-01] MEDS: MORPHINE SULF INJ 2 MG/ML SYRINGE 1ML IV PRN ×3 (13:34→22:10)
[2018-07-01 14:39] VITALS: BP 153/72
[2018-07-01 19:36] LABS: Urine Bacteria NONE SEEN /hpf (None Seen); Urine Blood 2+ /uL (Negative); Urine Mucus FEW (None Seen); Urine Specific Gravity 1.021 (1.001-1.035); Urine WBC 33 /hpf (0 - 5)
[2018-07-01] MEDS: HYDROcodone-ACET 5/325MG TAB PO PRN (20:11)
[2018-07-01] MEDS: ALPRAZolam 0.5 MG TAB PO PRN (20:11)
[2018-07-01] MEDS ORDERED: VANCOMYCIN PER PHARMACY 0 MG IV SCH (20:30)
[2018-07-01] MEDS ORDERED: VANCOMYCIN 1GM/250ML 250 ML IV ONE (21:00)
[2018-07-01 22:00] VITALS: BP 126/59
[2018-07-01] MEDS: TEMAZEPAM 15 MG CAP PO PRN (22:10)
[2018-07-02] MEDS: PIPERACILLIN-TAZOB 3.375GM 100 ML IV SCH ×2 (00:45→06:04)
[2018-07-02] MEDS: HYDROcodone-ACET 5/325MG TAB PO PRN ×4 (01:00→21:08)
[2018-07-02] MEDS: MORPHINE SULF INJ 2 MG/ML SYRINGE 1ML IV PRN ×6 (01:51→23:36)
[2018-07-02] MEDS: IPRATROPIUM BROM 0.5 MG/2.5ML INH SOL NEB SCH ×6 (02:08→23:41)
[2018-07-02] MEDS: ALBUTEROL SULF 2.5 MG/0.5ML(0.5%) NEB SOLN NEB SCH ×6 (02:08→23:41)
[2018-07-02 05:00] VITALS: BP 150/81
[2018-07-02] MEDS: methylPREDNISolone SOD SUCC 40 MG/ML VL IV SCH ×4 (06:03→23:36)
[2018-07-02 08:00] VITALS: BP 144/86
[2018-07-02] MEDS ORDERED: VANCOMYCIN 1GM/250ML 250 ML IV SCH (09:00)
[2018-07-02] MEDS: amLODIPine BESYLATE 5 MG TAB PO SCH (09:07)
[2018-07-02] MEDS: PANTOPRAZOLE 40 MG TAB PO SCH (09:07)
[2018-07-02] MEDS: FUROSEMIDE 20 MG/2 ML VIAL IV SCH (09:08)
[2018-07-02] MEDS: BUDESONIDE (INHALATION) 0.5 MG/2 ML NEB NEB SCH ×2 (10:00→18:24)
[2018-07-02 12:00] VITALS: BP 141/89
[2018-07-02] MEDS: guaiFENesin-DM 100/10mg/5ml SYR PO PRN ×2 (12:18→18:37)
[2018-07-02 16:00] VITALS: BP 127/83
[2018-07-02] MEDS: ALPRAZolam 0.5 MG TAB PO PRN (21:08)
[2018-07-02 22:00] VITALS: BP 145/90
[2018-07-03] MEDS: TEMAZEPAM 15 MG CAP PO PRN (00:51)
[2018-07-03] MEDS: guaiFENesin-DM 100/10mg/5ml SYR PO PRN ×4 (00:52→21:20)
[2018-07-03] MEDS: MORPHINE SULF INJ 2 MG/ML SYRINGE 1ML IV PRN ×5 (03:59→22:58)
[2018-07-03] MEDS: IPRATROPIUM BROM 0.5 MG/2.5ML INH SOL NEB SCH ×6 (04:30→23:50)
[2018-07-03] MEDS: ALBUTEROL SULF 2.5 MG/0.5ML(0.5%) NEB SOLN NEB SCH ×6 (04:30→23:50)
[2018-07-03 05:00] VITALS: BP 148/83
[2018-07-03] MEDS: methylPREDNISolone SOD SUCC 40 MG/ML VL IV SCH ×3 (06:32→18:46)
[2018-07-03 06:45] LABS: Hemoglobin 9.3 g/dL (12.2-16.2)
[2018-07-03 06:48] LABS: Hematocrit 28.9 % (36.0-46.0); Mean Corpuscular Hgb Conc. 32.2 g/dL (32.0-36.0); Mean Corpuscular Volume 77.8 fL (80.0-100.0); Platelet Count (auto) 187 10^3/uL (140-450); Red Blood Cells 3.72 10^6/uL (4.0-5.20); Red Cell Distribution Width 18.8 % (11.8-14.3); White Blood Cell 29.4 10^3/uL (4.4-10.8)
[2018-07-03] MEDS: HYDROcodone-ACET 5/325MG TAB PO PRN ×3 (06:59→21:23)
[2018-07-03 07:09] LABS: Band Neutrophils % (manual) 0; Basophils % (manual) 0 (0.0-2.0); Blast Cells 0; Eosinophils % (manual) 0 (0-7); Metamyelocytes % 0; Myelocytes % 0; Promyelocytes % 0; Reactive Lymphocytes 0
[2018-07-03 07:15] LABS: BUN/Creatinine Ratio 34.3; Calcium 7.5 mg/dL (8.5-10.1); Potassium 3.9 mmol/L (3.5-5.1)
[2018-07-03 08:00] VITALS: BP 122/89
[2018-07-03 08:46] LABS: Lymphocytes % (manual) 10 (10.0-50.0); Monocytes % (manual) 8 (0-12)
[2018-07-03] MEDS: BUDESONIDE (INHALATION) 0.5 MG/2 ML NEB NEB SCH ×2 (09:10→23:50)
[2018-07-03] MEDS: amLODIPine BESYLATE 5 MG TAB PO SCH (09:26)
[2018-07-03] MEDS: PANTOPRAZOLE 40 MG TAB PO SCH (09:26)
[2018-07-03] MEDS: FUROSEMIDE 20 MG/2 ML VIAL IV SCH (09:27)
[2018-07-03 12:00] VITALS: BP 131/76
[2018-07-03] MEDS: DOXYCYCLINE 100 MG TAB/CAP PO SCH ×2 (14:21→21:21)
[2018-07-03 16:00] VITALS: BP 136/85
[2018-07-03] MEDS: ALPRAZolam 0.5 MG TAB PO PRN (21:21)
[2018-07-03 22:00] VITALS: BP 131/73
[2018-07-04] MEDS: methylPREDNISolone SOD SUCC 40 MG/ML VL IV SCH ×4 (00:17→17:28)
[2018-07-04] MEDS: IPRATROPIUM BROM 0.5 MG/2.5ML INH SOL NEB SCH ×5 (02:38→17:50)
[2018-07-04] MEDS: ALBUTEROL SULF 2.5 MG/0.5ML(0.5%) NEB SOLN NEB SCH ×5 (02:38→17:50)
[2018-07-04] MEDS: MORPHINE SULF INJ 2 MG/ML SYRINGE 1ML IV PRN ×5 (03:07→21:25)
[2018-07-04 05:00] VITALS: BP 138/81
[2018-07-04] MEDS: guaiFENesin-DM 100/10mg/5ml SYR PO PRN ×4 (05:38→22:30)
[2018-07-04] MEDS: BUDESONIDE (INHALATION) 0.5 MG/2 ML NEB NEB SCH ×2 (05:43→22:20)
[2018-07-04 06:53] VITALS: BP 138/81
[2018-07-04 07:31] LABS: Hematocrit 29.1 % (36.0-46.0)
[2018-07-04 07:32] LABS: Hemoglobin 9.5 g/dL (12.2-16.2); Mean Corpuscular Hemoglobin 25.4 pg (28.0-32.0); Mean Corpuscular Hgb Conc. 32.5 g/dL (32.0-36.0); Platelet Count (auto) 238 10^3/uL (140-450); Red Blood Cells 3.73 10^6/uL (4.0-5.20); Red Cell Distribution Width 18.7 % (11.8-14.3)
[2018-07-04 07:54] LABS: White Blood Cell 30.8 10^3/uL (4.4-10.8)
[2018-07-04 07:55] LABS: Band Neutrophils % (manual) 0; Basophils % (manual) 0 (0.0-2.0); Blast Cells 0; Eosinophils % (manual) 0 (0-7); Metamyelocytes % 0; Myelocytes % 0; Promyelocytes % 0; Reactive Lymphocytes 0
[2018-07-04 09:00] VITALS: BP 133/76
[2018-07-04] MEDS: amLODIPine BESYLATE 5 MG TAB PO SCH (09:11)
[2018-07-04] MEDS: DOXYCYCLINE 100 MG TAB/CAP PO SCH ×2 (09:12→21:23)
[2018-07-04] MEDS: PANTOPRAZOLE 40 MG TAB PO SCH (09:12)
[2018-07-04] MEDS: ONDANSETRON HCL 4 MG/2 ML VIAL IV PRN ×3 (10:37→19:59)
[2018-07-04] MEDS: HYDROcodone-ACET 5/325MG TAB PO PRN ×2 (10:43→19:55)
[2018-07-04 11:49] LABS: Lymphocytes % (manual) 1 (10.0-50.0); Monocytes % (manual) 1 (0-12)
[2018-07-04 13:00] VITALS: BP 139/83
[2018-07-04] MEDS: ACETYLCYSTEINE 10 %(100MG/ML) SOL 4ML NEB SCH ×2 (13:14→17:50)
[2018-07-04 16:52] VITALS: BP 134/96
[2018-07-04] MEDS: ALPRAZolam 0.5 MG TAB PO PRN (19:58)
[2018-07-04 22:00] VITALS: BP 120/77
[2018-07-04] MEDS: TEMAZEPAM 15 MG CAP PO PRN (22:30)
[2018-07-05] MEDS ORDERED: ALBUTEROL SULF 2.5 MG/0.5ML(0.5%) NEB SOLN NEB SCH
[2018-07-05] MEDS: methylPREDNISolone SOD SUCC 40 MG/ML VL IV SCH ×4 (00:15→17:00)
[2018-07-05] MEDS: ONDANSETRON HCL 4 MG/2 ML VIAL IV PRN ×4 (01:24→13:55)
[2018-07-05] MEDS: MORPHINE SULF INJ 2 MG/ML SYRINGE 1ML IV PRN ×4 (01:25→13:55)
[2018-07-05] MEDS: ALBUTEROL SULF 2.5 MG/0.5ML(0.5%) NEB SOLN NEB SCH ×5 (03:00→18:00)
[2018-07-05] MEDS: HYDROcodone-ACET 5/325MG TAB PO PRN ×2 (03:16→07:30)
[2018-07-05 05:17] VITALS: BP 123/61
[2018-07-05] MEDS: guaiFENesin-DM 100/10mg/5ml SYR PO PRN ×2 (06:15→13:55)
[2018-07-05] MEDS: IPRATROPIUM BROM 0.5 MG/2.5ML INH SOL NEB SCH ×4 (06:48→18:00)
[2018-07-05] MEDS: BUDESONIDE (INHALATION) 0.5 MG/2 ML NEB NEB SCH ×2 (06:49→22:00)
[2018-07-05] MEDS: ACETYLCYSTEINE 10 %(100MG/ML) SOL 4ML NEB SCH ×3 (06:49→22:00)
[2018-07-05 08:30] VITALS: BP 126/56
[2018-07-05] MEDS: amLODIPine BESYLATE 5 MG TAB PO SCH (09:40)
[2018-07-05] MEDS: DOXYCYCLINE 100 MG TAB/CAP PO SCH ×2 (09:41→22:00)
[2018-07-05] MEDS: PANTOPRAZOLE 40 MG TAB PO SCH (09:41)
[2018-07-05] MEDS: ALPRAZolam 0.5 MG TAB PO PRN (11:38)
[2018-07-05 12:47] VITALS: BP 127/69
[2018-07-05 16:40] VITALS: BP 135/92
[2018-07-06] MEDS: ALBUTEROL SULF 2.5 MG/0.5ML(0.5%) NEB SOLN NEB SCH ×6 (03:00→22:29)
[2018-07-06] MEDS: methylPREDNISolone SOD SUCC 40 MG/ML VL IV SCH ×4 (05:19→18:00)
[2018-07-06] MEDS: ACETYLCYSTEINE 10 %(100MG/ML) SOL 4ML NEB SCH ×3 (06:00→22:29)
[2018-07-06] MEDS: BUDESONIDE (INHALATION) 0.5 MG/2 ML NEB NEB SCH ×2 (06:00→22:29)
[2018-07-06] MEDS: IPRATROPIUM BROM 0.5 MG/2.5ML INH SOL NEB SCH ×4 (06:00→19:21)
[2018-07-06 08:00] VITALS: BP 126/56
[2018-07-06 08:30] VITALS: BP 139/72
[2018-07-06] MEDS: amLODIPine BESYLATE 5 MG TAB PO SCH (09:37)
[2018-07-06] MEDS: DOXYCYCLINE 100 MG TAB/CAP PO SCH ×2 (09:37→22:07)
[2018-07-06] MEDS: PANTOPRAZOLE 40 MG TAB PO SCH (09:37)
[2018-07-06] MEDS: HYDROcodone-ACET 5/325MG TAB PO PRN ×2 (09:42→18:34)
[2018-07-06 12:30] VITALS: BP 147/73
[2018-07-06] MEDS: ONDANSETRON HCL 4 MG/2 ML VIAL IV PRN ×2 (16:25→20:27)
[2018-07-06] MEDS: MORPHINE SULF INJ 2 MG/ML SYRINGE 1ML IV PRN ×2 (16:25→20:27)
[2018-07-06 17:26] VITALS: BP 141/92
[2018-07-06 22:00] VITALS: BP 134/80
[2018-07-06] MEDS: ALPRAZolam 0.5 MG TAB PO PRN (22:07)
[2018-07-06] MEDS: guaiFENesin-DM 100/10mg/5ml SYR PO PRN (22:08)
[2018-07-07] MEDS: methylPREDNISolone SOD SUCC 40 MG/ML VL IV SCH ×2 (00:19→05:57)
[2018-07-07] MEDS: TEMAZEPAM 15 MG CAP PO PRN ×2 (00:20→01:40)
[2018-07-07] MEDS: MORPHINE SULF INJ 2 MG/ML SYRINGE 1ML IV PRN ×6 (00:28→20:49)
[2018-07-07] MEDS: ONDANSETRON HCL 4 MG/2 ML VIAL IV PRN ×6 (00:28→20:49)
[2018-07-07] MEDS: HYDROcodone-ACET 5/325MG TAB PO PRN ×6 (01:41→22:47)
[2018-07-07 05:00] VITALS: BP 135/76
[2018-07-07] MEDS: IPRATROPIUM BROM 0.5 MG/2.5ML INH SOL NEB SCH ×4 (05:51→18:22)
[2018-07-07] MEDS: ACETYLCYSTEINE 10 %(100MG/ML) SOL 4ML NEB SCH ×3 (05:51→22:21)
[2018-07-07] MEDS: guaiFENesin-DM 100/10mg/5ml SYR PO PRN ×4 (05:57→22:47)
[2018-07-07 06:50] VITALS: BP 135/76
[2018-07-07 09:00] VITALS: BP 134/80
[2018-07-07] MEDS: BUDESONIDE (INHALATION) 0.5 MG/2 ML NEB NEB SCH ×2 (10:09→18:22)
[2018-07-07] MEDS: DOXYCYCLINE 100 MG TAB/CAP PO SCH ×2 (10:13→21:37)
[2018-07-07] MEDS: amLODIPine BESYLATE 5 MG TAB PO SCH (10:13)
[2018-07-07] MEDS: PANTOPRAZOLE 40 MG TAB PO SCH (10:19)
[2018-07-07 13:00] VITALS: BP 157/89
[2018-07-07 17:00] VITALS: BP 147/82
[2018-07-07] MEDS: predniSONE 20 MG TAB PO SCH (21:37)
[2018-07-07 22:00] VITALS: BP 142/82
[2018-07-07] MEDS ORDERED: methylPREDNISolone SOD SUCC 40 MG/ML VL IV SCH (22:00)
[2018-07-07] MEDS: ALBUTEROL SULF 2.5 MG/0.5ML(0.5%) NEB SOLN NEB SCH (22:21)
[2018-07-08] MEDS: MORPHINE SULF INJ 2 MG/ML SYRINGE 1ML IV PRN ×6 (00:53→22:16)
[2018-07-08] MEDS: ONDANSETRON HCL 4 MG/2 ML VIAL IV PRN ×6 (00:53→22:17)
[2018-07-08] MEDS: guaiFENesin-DM 100/10mg/5ml SYR PO PRN (03:38)
[2018-07-08] MEDS: HYDROcodone-ACET 5/325MG TAB PO PRN ×4 (03:39→19:27)
[2018-07-08] MEDS: ALBUTEROL SULF 2.5 MG/0.5ML(0.5%) NEB SOLN NEB SCH ×6 (03:51→22:12)
[2018-07-08 05:00] VITALS: BP 141/81
[2018-07-08] MEDS: IPRATROPIUM BROM 0.5 MG/2.5ML INH SOL NEB SCH ×4 (06:00→18:14)
[2018-07-08] MEDS: ACETYLCYSTEINE 10 %(100MG/ML) SOL 4ML NEB SCH ×3 (06:00→22:12)
[2018-07-08 08:30] LABS: Hemoglobin 9.1 g/dL (12.2-16.2); White Blood Cell 25.1 10^3/uL (4.4-10.8)
[2018-07-08 08:32] LABS: Hematocrit 28.9 % (36.0-46.0); Mean Corpuscular Hemoglobin 24.4 pg (28.0-32.0); Mean Corpuscular Hgb Conc. 31.5 g/dL (32.0-36.0); Mean Corpuscular Volume 77.5 fL (80.0-100.0); Platelet Count (auto) 199 10^3/uL (140-450); Red Blood Cells 3.73 10^6/uL (4.0-5.20); Red Cell Distribution Width 19.3 % (11.8-14.3)
[2018-07-08 08:41] LABS: Basophils % (manual) 0 (0.0-2.0); Blast Cells 0; Eosinophils % (manual) 0 (0-7); Metamyelocytes % 0; Myelocytes % 0; Promyelocytes % 0; Reactive Lymphocytes 0
[2018-07-08 09:14] VITALS: BP 126/75
[2018-07-08] MEDS: BUDESONIDE (INHALATION) 0.5 MG/2 ML NEB NEB SCH ×2 (10:00→18:14)
[2018-07-08] MEDS: predniSONE 20 MG TAB PO SCH (10:14)
[2018-07-08] MEDS: DOXYCYCLINE 100 MG TAB/CAP PO SCH ×2 (10:14→21:33)
[2018-07-08] MEDS: amLODIPine BESYLATE 5 MG TAB PO SCH (10:15)
[2018-07-08] MEDS: PANTOPRAZOLE 40 MG TAB PO SCH (10:30)
[2018-07-08 10:43] LABS: Band Neutrophils % (manual) 2; Lymphocytes % (manual) 4 (10.0-50.0); Monocytes % (manual) 9 (0-12)
[2018-07-08 13:14] VITALS: BP 134/74
[2018-07-08 17:00] VITALS: BP 131/84
[2018-07-08 22:00] VITALS: BP 143/79
[2018-07-09] MEDS: HYDROcodone-ACET 5/325MG TAB PO PRN ×3 (00:43→14:14)
[2018-07-09] MEDS: ALPRAZolam 0.5 MG TAB PO PRN ×2 (00:48→05:11)
[2018-07-09] MEDS: ALBUTEROL SULF 2.5 MG/0.5ML(0.5%) NEB SOLN NEB SCH ×4 (02:08→12:00)
[2018-07-09] MEDS: MORPHINE SULF INJ 2 MG/ML SYRINGE 1ML IV PRN ×3 (02:18→10:43)
[2018-07-09] MEDS: ONDANSETRON HCL 4 MG/2 ML VIAL IV PRN ×3 (02:19→10:43)
[2018-07-09 05:00] VITALS: BP 142/89
[2018-07-09] MEDS: IPRATROPIUM BROM 0.5 MG/2.5ML INH SOL NEB SCH ×3 (06:29→14:21)
[2018-07-09] MEDS: ACETYLCYSTEINE 10 %(100MG/ML) SOL 4ML NEB SCH ×2 (06:30→14:21)
[2018-07-09] MEDS: guaiFENesin-DM 100/10mg/5ml SYR PO PRN (06:37)
[2018-07-09 07:26] LABS: Basophils # (auto) 0.1 uL; Eosinophils # (auto) 0.1 uL; Red Blood Cells 3.64 10^6/uL (4.0-5.20)
[2018-07-09 07:29] LABS: Basophils % (auto) 0.4 % (0.0-2.0); Eosinophils % (auto) 0.3 % (0.0-7.0); Hematocrit 28.5 % (36.0-46.0); Lymphocytes # (auto) 2.7 uL; Lymphocytes % (auto) 11.5 % (10.0-50.0); Mean Corpuscular Hemoglobin 24.9 pg (28.0-32.0); Mean Corpuscular Hgb Conc. 31.8 g/dL (32.0-36.0); Mean Corpuscular Volume 78.3 fL (80.0-100.0); Monocytes # (auto) 1.4 uL; Neutrophils # (auto) 18.9 uL; Neutrophils % (auto) 81.8 % (37.0-80.0); Platelet Count (auto) 191 10^3/uL (140-450); White Blood Cell 23.1 10^3/uL (4.4-10.8)
[2018-07-09 07:46] LABS: Calcium 7.2 mg/dL (8.5-10.1); Potassium 3.8 mmol/L (3.5-5.1)
[2018-07-09 08:55] VITALS: BP 144/89
[2018-07-09] MEDS ORDERED: predniSONE 20 MG TAB PO SCH (10:00)
[2018-07-09] MEDS: BUDESONIDE (INHALATION) 0.5 MG/2 ML NEB NEB SCH (10:13)
[2018-07-09] MEDS: DOXYCYCLINE 100 MG TAB/CAP PO SCH (10:42)
[2018-07-09] MEDS: amLODIPine BESYLATE 5 MG TAB PO SCH (10:43)
[2018-07-09 12:41] VITALS: BP 132/70
[2018-07-09] MEDS: PANTOPRAZOLE 40 MG TAB PO SCH (14:12)
[2018-07-09 14:53] VITALS: BP 144/89
== END 2018-07-09 15:45 | disposition home or self-care (01) | DRG 189 ==
LOC: ER 23:21 → EDBD 23:21 → OVERFLOW 23:22 → EAST 07-01 09:47
PROVIDERS: ADMIT Nurse Practitioner Family; ATTEND Internal Medicine
DX: J96.00 Acute respiratory failure, unspecified whether with hypoxia or hypercapnia (principal); J45.901 Unspecified asthma with (acute) exacerbation; J44.0 Chronic obstructive pulmonary disease with (acute) lower respiratory infection; J44.1 Chronic obstructive pulmonary disease with (acute) exacerbation; E44.1 Mild protein-calorie malnutrition; J20.9 Acute bronchitis, unspecified; T38.0X5A Adverse effect of glucocorticoids and synthetic analogues, initial encounter; E66.9 Obesity, unspecified; D72.829 Elevated white blood cell count, unspecified; E11.9 Type 2 diabetes mellitus without complications; Z86.73 Personal history of transient ischemic attack (TIA), and cerebral infarction without residual deficits; Z85.038 Personal history of other malignant neoplasm of large intestine; Z68.38 Body mass index [BMI] 38.0-38.9, adult; Y92.89 Other specified places as the place of occurrence of the external cause
CPT/HCPCS: 36415; 36600; 71045; 80048; 80053; 81001; 82805; 83880; 84484; 84702; 85007; 85025; 85027; 85379; 85610; 85730; 87040; 87081; 93005; 94640; 96365; 96366; 96375; A6257; J0696; J2405; J2543; J3490

== ENCOUNTER 2018-09-29 18:26 | Emergency (ER) | payer OTHER, MEDICAID ==
[~2018-09-29] VITALS: Ht 157.5 cm; Wt 83.5 kg
[2018-09-29 19:08] LABS: Basophils # (auto) 0.1 uL; Eosinophils # (auto) 0 uL; Eosinophils % (auto) 0.1 % (0.0-7.0); Hemoglobin 10.2 g/dL (12.2-16.2); Mean Corpuscular Hemoglobin 24.4 pg (28.0-32.0); Neutrophils # (auto) 11.5 uL
[2018-09-29 19:10] LABS: Basophils % (auto) 0.9 % (0.0-2.0); Hematocrit 32.5 % (36.0-46.0); Lymphocytes # (auto) 0.9 uL; Lymphocytes % (auto) 7.2 % (10.0-50.0); Mean Corpuscular Hgb Conc. 31.3 g/dL (32.0-36.0); Monocytes # (auto) 0.4 uL; Monocytes % (auto) 3.2 % (0.0-12.0); Neutrophils % (auto) 88.6 % (37.0-80.0); Platelet Count (auto) 179 10^3/uL (140-450); Red Blood Cells 4.17 10^6/uL (4.0-5.20); Red Cell Distribution Width 19.4 % (11.8-14.3)
[2018-09-29 19:23] LABS: Alanine Aminotransferase 21 U/L (13-56); Albumin 3.4 g/dL (3.4-5.0); Anion Gap 6 (5-15); Aspartate Aminotransferase 9 U/L (15-37); Blood Urea Nitrogen 16 mg/dL (7-18); Calcium 7.9 mg/dL (8.5-10.1); Carbon Dioxide 23 mmol/L (21-32); Chloride 105 mmol/L (98-107); Glucose 94 mg/dL (74-106); Potassium 4.2 mmol/L (3.5-5.1); Sodium 134 mmol/L (136-145)
[2018-09-29 19:28] LABS: Alkaline Phosphatase 67 U/L (45-117); BUN/Creatinine Ratio 20.3; Bilirubin, Total 0.2 mg/dL (0.2-1.0); GFR African American 104 mL/min; GFR Non-African American 86 mL/min; Total Protein 6.5 g/dL (6.4-8.2)
[2018-09-29 19:40] LABS: Urine Bacteria NONE SEEN /hpf (None Seen); Urine Blood Negative /uL (Negative); Urine Mucus FEW (None Seen); Urine Specific Gravity 1.019 (1.001-1.035); Urine WBC 1 /hpf (0 - 5)
[2018-09-29] MEDS ORDERED: ONDANSETRON HCL 4 MG/2 ML VIAL IV ONE (19:45)
[2018-09-29] MEDS ORDERED: MORPHINE SULFATE 4 MG/ML SYR/VIAL IV ONE (19:45)
[2018-09-29 21:19] VITALS: BP 150/89
[2018-09-29 21:38] LABS: Albumin 3.3 g/dL (3.4-5.0); Potassium 4.3 mmol/L (3.5-5.1)
[2018-09-29 21:41] LABS: BUN/Creatinine Ratio 19.5; Bilirubin, Total 0.2 mg/dL (0.2-1.0); Total Protein 6.5 g/dL (6.4-8.2)
[2018-09-29] MEDS ORDERED: cefTRIAXone 1GM/50ML D5W 50 ML IV ONE (22:00)
== END 2018-09-29 21:49 | disposition home or self-care (01) ==
LOC: ER 18:26
DX: S16.1XXA Strain of muscle, fascia and tendon at neck level, initial encounter (principal); J02.9 Acute pharyngitis, unspecified; R51 Headache; D72.829 Elevated white blood cell count, unspecified; J44.9 Chronic obstructive pulmonary disease, unspecified; Z88.1 Allergy status to other antibiotic agents; X58.XXXA Exposure to other specified factors, initial encounter; Y93.89 Activity, other specified; Y99.8 Other external cause status; Y92.89 Other specified places as the place of occurrence of the external cause
CPT/HCPCS: 36415; 70360; 70450; 71046; 80053; 81001; 84484; 85025; 87070; 87880; 93005; 96365; 96375; 99285; J0696; J2270; J2405

== ENCOUNTER 2018-10-16 03:50 | Emergency (ER) | payer MEDICARE, MEDICAID ==
[~2018-10-16] VITALS: Ht 157.5 cm; Wt 69.9 kg
[2018-10-16 04:04] VITALS: BP 150/97
== END 2018-10-16 06:27 | disposition left against medical advice (07) ==
LOC: ER 03:51
DX: J04.0 Acute laryngitis (principal); Z53.21 Procedure and treatment not carried out due to patient leaving prior to being seen by health care provider

== ENCOUNTER 2018-11-01 16:09 | Emergency (ER) | payer MEDICARE, MEDICAID ==
[~2018-11-01] VITALS: Ht 157.5 cm; Wt 79.4 kg
[2018-11-01 16:18] VITALS: BP 147/103
== END 2018-11-01 23:02 | disposition left against medical advice (07) ==
LOC: ER 16:13
DX: J45.909 Unspecified asthma, uncomplicated (principal); Z53.21 Procedure and treatment not carried out due to patient leaving prior to being seen by health care provider

== ENCOUNTER 2018-12-12 15:43 | Emergency (ER) | payer OTHER, MEDICAID ==
[~2018-12-12] VITALS: Ht 157.5 cm; Wt 78.9 kg
[2018-12-12 16:48] VITALS: BP 148/86
== END 2018-12-12 18:35 | disposition left against medical advice (07) ==
LOC: ER 15:44
DX: R06.02 Shortness of breath (principal); Z53.21 Procedure and treatment not carried out due to patient leaving prior to being seen by health care provider
CPT/HCPCS: 93005

== ENCOUNTER 2019-06-22 08:55 | Inpatient (IN) | payer OTHER, MEDICAID ==
[~2019-06-22] VITALS: Ht 157.5 cm; Wt 80.4 kg
[2019-06-22] VITALS (8 sets, daily range): BP systolic 127–179; BP diastolic 90–120
[2019-06-22] MEDS ORDERED: methylPREDNISolone SOD SUCC 125 MG/2 ML VL ONE (09:07)
[2019-06-22] MEDS ORDERED: methylPREDNISolone SOD SUCC 125 MG/2 ML VL IV ONE ×2 (09:15→13:30)
[2019-06-22 10:21] LABS: Basophils # (auto) 0.1 uL; Mean Corpuscular Hemoglobin 25.3 pg (28.0-32.0)
[2019-06-22 10:25] LABS: Albumin 3.7 g/dL (3.4-5.0); Anion Gap 10 (5-15); BUN/Creatinine Ratio 13.4; Blood Urea Nitrogen 11 mg/dL (7-18); Calcium 8.3 mg/dL (8.5-10.1); Carbon Dioxide 23 mmol/L (21-32); Chloride 107 mmol/L (98-107); GFR African American 100 mL/min; GFR Non-African American 82 mL/min; Glucose 93 mg/dL (74-106); Magnesium 2.3 mg/dL (1.6-2.6); Potassium 3.9 mmol/L (3.5-5.1); Sodium 140 mmol/L (136-145)
[2019-06-22 10:28] LABS: Basophils % (auto) 0.9 % (0.0-2.0); Hematocrit 39.1 % (36.0-46.0); Hemoglobin 12.4 g/dL (12.2-16.2); Lymphocytes # (auto) 2.4 uL; Lymphocytes % (auto) 31.6 % (10.0-50.0); Mean Corpuscular Hgb Conc. 31.8 g/dL (32.0-36.0); Mean Corpuscular Volume 79.4 fL (80.0-100.0); Monocytes % (auto) 13.3 % (0.0-12.0); Neutrophils % (auto) 40.2 % (37.0-80.0); Platelet Count (auto) 360 10^3/uL (140-450); Red Blood Cells 4.92 10^6/uL (4.0-5.20); White Blood Cell 7.4 10^3/uL (4.4-10.8)
[2019-06-22 10:31] LABS: Alanine Aminotransferase 24 U/L (13-56); Alkaline Phosphatase 81 U/L (45-117); Aspartate Aminotransferase 36 U/L (15-37); Bilirubin, Total 0.3 mg/dL (0.2-1.0); Total Protein 7.6 g/dL (6.4-8.2)
[2019-06-22 10:37] LABS: Red Cell Distribution Width 22.2 % (11.8-14.3)
[2019-06-22] MEDS ORDERED: IPRATROPIUM BROM 0.5 MG/2.5ML INH SOL NEB ONE (13:15)
[2019-06-22] MEDS ORDERED: hydrALAZINE HCL 20 MG/ML VL IV ONE (13:15)
[2019-06-22] MEDS ORDERED: ALBUTEROL SULF 2.5 MG/0.5ML(0.5%) NEB SOLN NEB ONE (13:15)
[2019-06-22] MEDS ORDERED: HYDROmorphone HCL 2 MG/ML VL IV ONE ×2 (13:30→23:00)
[2019-06-22] MEDS ORDERED: ONDANSETRON HCL 4 MG/2 ML VIAL IV ONE ×2 (13:30→16:00)
[2019-06-22] MEDS ORDERED: NITROGLYCERIN 0.4 MG SL TAB SL PRN (15:00)
[2019-06-22] MEDS ORDERED: ACETAMINOPHEN 500 MG TAB PO PRN (15:00)
[2019-06-22] MEDS ORDERED: TEMAZEPAM 15 MG CAP PO PRN (15:00)
[2019-06-22] MEDS ORDERED: ALBUTEROL SULF 2.5 MG/0.5ML(0.5%) NEB SOLN NEB PRN (15:00)
[2019-06-22] MEDS ORDERED: LACTULOSE 20Gm/30ML SOLN PO PRN ×2 (15:00)
[2019-06-22] MEDS: ENOXAPARIN SOD 40 MG/0.4 ML SYRINGE SC SCH (15:07)
[2019-06-22] MEDS: DOXYCYCLINE 100MG/250ML 250 ML IV SCH (15:27)
[2019-06-22] MEDS: SODIUM CHLORIDE 0.9% 1,000 ML IV SCH (15:27)
[2019-06-22] MEDS ORDERED: MORPHINE SULF INJ 2 MG/ML SYRINGE 1ML IV ONE (16:00)
[2019-06-22] MEDS ORDERED: DILTIAZEM HCL 60 MG TAB GT SCH (18:00)
[2019-06-22] MEDS: methylPREDNISolone SOD SUCC 40 MG/ML VL IV SCH (18:27)
[2019-06-22] MEDS: DILTIAZEM HCL 60 MG TAB PO SCH (18:28)
[2019-06-22] MEDS: ALBUTEROL SULF 2.5 MG/0.5ML(0.5%) NEB SOLN NEB SCH ×2 (19:05→23:54)
[2019-06-22] MEDS: IPRATROPIUM BROM 0.5 MG/2.5ML INH SOL NEB SCH ×2 (19:05→23:54)
[2019-06-22 19:21] LABS: CRP High Sensitivity 1.31 mg/dL (< 0.3)
[2019-06-22] MEDS: MORPHINE SULF INJ 2 MG/ML SYRINGE 1ML IV PRN (19:22)
[2019-06-22] MEDS ORDERED: LORazepam 2MG/ML-1ML VIAL ONE (21:54)
[2019-06-22 22:29] LABS: Urine Bacteria FEW /hpf (None Seen); Urine Blood 2+ /uL (Negative); Urine Hyaline Cast FEW /lpf (0 - 2); Urine Mucus FEW (None Seen); Urine Specific Gravity 1.026 (1.001-1.035); Urine WBC 3 /hpf (0 - 5)
[2019-06-22] MEDS: PROMETHAZINE HCL 25 MG/ML 1ML IV PRN (23:03)
[2019-06-22 23:16] LABS: Alcohol, Urine < 3.0 mg/dL (0-5); Amphetamine Screen, Urine NEGATIVE (NEGATIVE); Barbiturate Scree,Urine NEGATIVE (NEGATIVE); Benzodiazephine Screen, Urine NEGATIVE (NEGATIVE); Cannabinoid Screen, Urine NEGATIVE (NEGATIVE); Cocaine Screen, Urine NEGATIVE (NEGATIVE); Opiate Scree,Urine POSITIVE (NEGATIVE); Phencyclidine Screen, Urine POSITIVE (NEGATIVE)
[2019-06-22] MEDS ORDERED: MAGNESIUM SULFATE 1GM/100ML 100 ML IV ONE (23:45)
[2019-06-23] VITALS (12 sets, daily range): BP systolic 122–165; BP diastolic 75–103
[2019-06-23] MEDS: methylPREDNISolone SOD SUCC 40 MG/ML VL IV SCH ×4 (00:11→18:30)
[2019-06-23] MEDS: DOXYCYCLINE 100MG/250ML 250 ML IV SCH ×2 (03:03→15:05)
[2019-06-23] MEDS: PROMETHAZINE HCL 25 MG/ML 1ML IV PRN (03:52)
[2019-06-23] MEDS: MORPHINE SULF INJ 2 MG/ML SYRINGE 1ML IV PRN (03:52)
[2019-06-23] MEDS ORDERED: LORazepam 2MG/ML-1ML VIAL IV ONE (04:00)
[2019-06-23] MEDS: SODIUM CHLORIDE 0.9% 1,000 ML IV SCH ×2 (04:08→15:55)
[2019-06-23] MEDS ORDERED: HYDROmorphone HCL 2 MG/ML VL IV ONE ×2 (04:15→06:00)
[2019-06-23] MEDS ORDERED: MAGNESIUM SULFATE 1GM/100ML 100 ML IV ONE (04:15)
[2019-06-23] MEDS: DILTIAZEM HCL 60 MG TAB PO SCH ×2 (05:33)
[2019-06-23] MEDS: ALBUTEROL SULF 2.5 MG/0.5ML(0.5%) NEB SOLN NEB SCH (07:28)
[2019-06-23] MEDS: IPRATROPIUM BROM 0.5 MG/2.5ML INH SOL NEB SCH ×3 (07:28→18:16)
[2019-06-23] MEDS ORDERED: ALBUTEROL SULF 2.5 MG/0.5ML(0.5%) NEB SOLN NEB PRN (09:45)
[2019-06-23] MEDS ORDERED: ALBUTEROL SULF 2.5 MG/0.5ML(0.5%) NEB SOLN ONE (09:50)
[2019-06-23] MEDS ORDERED: BUDESONIDE (INHALATION) 0.5 MG/2 ML NEB ONE (09:50)
[2019-06-23] MEDS: ENOXAPARIN SOD 40 MG/0.4 ML SYRINGE SC SCH (10:00)
[2019-06-23] MEDS ORDERED: ALBUTEROL SULF 2.5 MG/0.5ML(0.5%) NEB SOLN NEB SCH (10:00)
[2019-06-23] MEDS: BUDESONIDE (INHALATION) 0.5 MG/2 ML NEB NEB SCH ×2 (10:00→22:21)
[2019-06-23] MEDS: PANTOPRAZOLE 40 MG TAB PO SCH (10:00)
[2019-06-23 10:20] LABS: Alcohol, Urine < 3.0 mg/dL (0-5); Amphetamine Screen, Urine NEGATIVE (NEGATIVE); Barbiturate Scree,Urine NEGATIVE (NEGATIVE); Benzodiazephine Screen, Urine NEGATIVE (NEGATIVE); Cannabinoid Screen, Urine NEGATIVE (NEGATIVE); Cocaine Screen, Urine NEGATIVE (NEGATIVE); Phencyclidine Screen, Urine POSITIVE (NEGATIVE)
[2019-06-23 10:27] LABS: Opiate Scree,Urine POSITIVE (NEGATIVE)
[2019-06-23] MEDS: ONDANSETRON HCL 4 MG/2 ML VIAL IV PRN ×3 (12:00→20:31)
[2019-06-23] MEDS: HYDROmorphone HCL 2 MG/ML VL IV PRN ×3 (12:00→20:31)
[2019-06-23] MEDS: LORazepam 2MG/ML-1ML VIAL IV PRN ×2 (14:45→22:08)
[2019-06-23] MEDS: LEVALBUTEROL HCL 1.25 MG/3 ML NEB NEB SCH ×3 (18:16→22:21)
[2019-06-24] VITALS (9 sets, daily range): BP systolic 121–158; BP diastolic 65–89
[2019-06-24] MEDS: HYDROmorphone HCL 2 MG/ML VL IV PRN ×6 (00:59→22:55)
[2019-06-24] MEDS: ONDANSETRON HCL 4 MG/2 ML VIAL IV PRN ×3 (00:59→09:48)
[2019-06-24] MEDS: SODIUM CHLORIDE 0.9% 1,000 ML IV SCH (02:00)
[2019-06-24] MEDS: IPRATROPIUM BROM 0.5 MG/2.5ML INH SOL NEB SCH ×4 (02:02→19:20)
[2019-06-24] MEDS: LEVALBUTEROL HCL 1.25 MG/3 ML NEB NEB SCH ×4 (02:02→19:20)
[2019-06-24] MEDS: methylPREDNISolone SOD SUCC 40 MG/ML VL IV SCH ×4 (02:20→18:17)
[2019-06-24] MEDS: DOXYCYCLINE 100MG/250ML 250 ML IV SCH (03:17)
[2019-06-24] MEDS: LORazepam 2MG/ML-1ML VIAL IV PRN ×4 (04:11→23:25)
[2019-06-24] MEDS: BUDESONIDE (INHALATION) 0.5 MG/2 ML NEB NEB SCH (06:03)
[2019-06-24] MEDS: PANTOPRAZOLE 40 MG TAB PO SCH (09:48)
[2019-06-24] MEDS: ENOXAPARIN SOD 40 MG/0.4 ML SYRINGE SC SCH (09:48)
[2019-06-24] MEDS ORDERED: FUROSEMIDE 40 MG/4 ML VIAL IV ONE (11:15)
[2019-06-24] MEDS ORDERED: POTASSIUM EFFERVESENT TAB 25 MEQ GT ONE (11:15)
[2019-06-24] MEDS: diphenhdrAMINE HCL 50 MG/1 ML VL IV PRN ×2 (11:48→18:17)
[2019-06-24] MEDS: traMADol HCL 50 MG TAB PO PRN ×2 (15:20→22:20)
[2019-06-25] VITALS (7 sets, daily range): BP systolic 121–146; BP diastolic 73–91
[2019-06-25] MEDS: diphenhdrAMINE HCL 50 MG/1 ML VL IV PRN ×2 (00:11→08:52)
[2019-06-25] MEDS: methylPREDNISolone SOD SUCC 40 MG/ML VL IV SCH ×4 (00:11→18:20)
[2019-06-25] MEDS: BUDESONIDE (INHALATION) 0.5 MG/2 ML NEB NEB SCH ×3 (00:36→18:43)
[2019-06-25] MEDS: IPRATROPIUM BROM 0.5 MG/2.5ML INH SOL NEB SCH ×4 (00:36→18:43)
[2019-06-25] MEDS: LEVALBUTEROL HCL 1.25 MG/3 ML NEB NEB SCH ×4 (00:37→18:43)
[2019-06-25] MEDS: HYDROmorphone HCL 2 MG/ML VL IV PRN ×5 (05:26→22:36)
[2019-06-25] MEDS: LORazepam 2MG/ML-1ML VIAL IV PRN ×3 (08:51→21:27)
[2019-06-25] MEDS: PANTOPRAZOLE 40 MG TAB PO SCH (09:49)
[2019-06-25] MEDS: ENOXAPARIN SOD 40 MG/0.4 ML SYRINGE SC SCH (09:49)
[2019-06-25] MEDS: traMADol HCL 50 MG TAB PO PRN ×2 (11:52→19:58)
[2019-06-25] MEDS: diphenhdrAMINE HCL 25 MG CAP PO PRN ×2 (15:21→21:27)
[2019-06-25] MEDS ORDERED: guaiFENesin-DM 100/10mg/5ml SYR PO PRN (23:15)
[2019-06-26] MEDS: IPRATROPIUM BROM 0.5 MG/2.5ML INH SOL NEB SCH ×3 (00:28→13:29)
[2019-06-26] MEDS: LEVALBUTEROL HCL 1.25 MG/3 ML NEB NEB SCH ×3 (00:28→13:29)
[2019-06-26] MEDS: methylPREDNISolone SOD SUCC 40 MG/ML VL IV SCH ×2 (00:57→05:45)
[2019-06-26] MEDS: HYDROmorphone HCL 2 MG/ML VL IV PRN ×2 (04:36→09:00)
[2019-06-26] MEDS: ONDANSETRON HCL 4 MG/2 ML VIAL IV PRN (04:36)
[2019-06-26 05:00] VITALS: BP 146/92
[2019-06-26] MEDS: LORazepam 2MG/ML-1ML VIAL IV PRN (05:45)
[2019-06-26] MEDS: diphenhdrAMINE HCL 25 MG CAP PO PRN ×2 (05:45→11:58)
[2019-06-26] MEDS: traMADol HCL 50 MG TAB PO PRN (06:40)
[2019-06-26] MEDS: BUDESONIDE (INHALATION) 0.5 MG/2 ML NEB NEB SCH (07:44)
[2019-06-26 09:00] VITALS: BP 137/96
[2019-06-26] MEDS: PANTOPRAZOLE 40 MG TAB PO SCH (09:01)
[2019-06-26] MEDS: ENOXAPARIN SOD 40 MG/0.4 ML SYRINGE SC SCH (10:00)
[2019-06-26] MEDS ORDERED: FLUT250M2 INH (10:45)
[2019-06-26] MEDS ORDERED: DOXY-216 PO (10:45)
[2019-06-26] MEDS ORDERED: ALBUAER3 IN (10:47)
[2019-06-26 11:30] VITALS: BP 144/80
[2019-06-26] MEDS ORDERED: LORazepam 0.5 MG TAB PO PRN (11:30)
[2019-06-26 13:00] VITALS: BP 137/91
[2019-06-26 16:46] VITALS: BP 137/82
== END 2019-06-26 17:28 | disposition home health service (06) | DRG 189 ==
LOC: EDBD 08:55 → ER 08:58 → TELE 08:59 → ICU WEST 06-23 10:00 → DOU IN ICU 06-23 19:24 → TELE-WESTW 06-24 12:52 → WEST WING 06-25 11:09
PROVIDERS: ADMIT Internal Medicine; ATTEND Internal Medicine
PROC: 5A09357 Assistance with Respiratory Ventilation, Less than 24 Consecutive Hours, Continuous Positive Airway Pressure (ICD-10-PCS; principal; 2019-06-22)
PROC: 5A09357 Assistance with Respiratory Ventilation, Less than 24 Consecutive Hours, Continuous Positive Airway Pressure (ICD-10-PCS; 2019-06-23)
PROC: 5A09357 Assistance with Respiratory Ventilation, Less than 24 Consecutive Hours, Continuous Positive Airway Pressure (ICD-10-PCS; 2019-06-24)
PROC: 5A09357 Assistance with Respiratory Ventilation, Less than 24 Consecutive Hours, Continuous Positive Airway Pressure (ICD-10-PCS; 2019-06-25)
PROC: 5A09357 Assistance with Respiratory Ventilation, Less than 24 Consecutive Hours, Continuous Positive Airway Pressure (ICD-10-PCS; 2019-06-26)
DX: J96.21 Acute and chronic respiratory failure with hypoxia (principal); J44.1 Chronic obstructive pulmonary disease with (acute) exacerbation; J45.901 Unspecified asthma with (acute) exacerbation; M62.82 Rhabdomyolysis; F19.20 Other psychoactive substance dependence, uncomplicated; F11.20 Opioid dependence, uncomplicated; I10 Essential (primary) hypertension; D72.1 Eosinophilia; E66.9 Obesity, unspecified; F32.9 Major depressive disorder, single episode, unspecified; F41.9 Anxiety disorder, unspecified; J96.22 Acute and chronic respiratory failure with hypercapnia; E11.9 Type 2 diabetes mellitus without complications; I08.0 Rheumatic disorders of both mitral and aortic valves; K21.9 Gastro-esophageal reflux disease without esophagitis; Z85.038 Personal history of other malignant neoplasm of large intestine; Z68.32 Body mass index [BMI] 32.0-32.9, adult; Z99.81 Dependence on supplemental oxygen; Z82.3 Family history of stroke; Z80.0 Family history of malignant neoplasm of digestive organs; Z82.5 Family history of asthma and other chronic lower respiratory diseases; Z83.3 Family history of diabetes mellitus; Z87.01 Personal history of pneumonia (recurrent)
CPT/HCPCS: 36415; 36600; 71045; 80053; 80307; 81001; 82550; 82805; 83735; 83880; 84443; 84484; 85025; 85379; 85652; 86141; 87081; 93005; 93306; 94640; 94660; 94761; 96374; 96375; 96376; 99291; G0378; J2405; J3490

== ENCOUNTER 2020-02-26 22:09 | Inpatient (IN) | payer OTHER, MEDICAID ==
[~2020-02-26] VITALS: Ht 157.5 cm; Wt 74.4 kg
[~2020-02-26 22:09] MED LIST changes: +ALBUAER3 IN; +DICY20TA PO; -DICY20TA66 PO; +DOXY-286 PO; +FLUT250M2 INH
[2020-02-26] MEDS ORDERED: ALBUTEROL SULF 2.5 MG/0.5ML(0.5%) NEB SOLN NEB ONE (22:30)
[2020-02-26] MEDS ORDERED: IPRATROPIUM BROM 0.5 MG/2.5ML INH SOL NEB ONE (22:30)
[2020-02-27] MEDS ORDERED: methylPREDNISolone SOD SUCC 125 MG/2 ML VL IM ONE (00:45)
[2020-02-27] MEDS ORDERED: ALBUTEROL SULF 2.5 MG/0.5ML(0.5%) NEB SOLN NEB ONE (00:45)
[2020-02-27] MEDS ORDERED: ACETAMINOPHEN 325 MG TAB PO ONE (00:45)
[2020-02-27] MEDS: MAGNESIUM SULFATE 1GM/100ML 100 ML IV SCH ×2 (03:00→04:09)
[2020-02-27 03:39] LABS: Urine Bacteria NONE SEEN /hpf (None Seen); Urine Blood Negative /uL (Negative); Urine Mucus FEW (None Seen); Urine Specific Gravity 1.023 (1.001-1.035); Urine WBC <1 /hpf (0 - 5)
[2020-02-27 03:59] LABS: Basophils # (auto) 0.1 10 ^3/uL (0-0.2); Eosinophils # (auto) 0.1 10 ^3/uL (0-0.8); Hemoglobin 10.7 g/dL (12.2-16.2); Lymphocytes # (auto) 0.4 10 ^3/uL (0.4-5.4); Nucleated Red Blood Cells % 0.1 %
[2020-02-27 04:01] LABS: Basophils % (auto) 1.3 % (0.0-2.0); Lymphocytes % (auto) 4.8 % (10.0-50.0); Mean Corpuscular Hemoglobin 25.6 pg (28.0-32.0); Mean Corpuscular Hgb Conc. 32.5 g/dL (32.0-36.0); Mean Corpuscular Volume 78.8 fL (80.0-100.0); Monocytes # (auto) 0.1 10 ^3/uL (0-1.3); Monocytes % (auto) 1.5 % (0.0-12.0); Neutrophils # (auto) 7.5 10 ^3/uL (1.6-8.6); Neutrophils % (auto) 91.4 % (37.0-80.0); Platelet Count (auto) 335 10^3/uL (140-450); Red Blood Cells 4.19 10^6/uL (4.0-5.20); Red Cell Distribution Width 18.5 % (11.8-14.3); White Blood Cell 8.2 10^3/uL (4.4-10.8)
[2020-02-27 04:18] LABS: Potassium 3.2 mmol/L (3.5-5.1)
[2020-02-27 04:23] LABS: Albumin 3.2 g/dL (3.4-5.0); BUN/Creatinine Ratio 14.1; Calcium 8.7 mg/dL (8.5-10.1)
[2020-02-27 04:25] LABS: Bilirubin, Total 0.4 mg/dL (0.2-1.0); Phosphorus 3.4 mg/dL (2.5-4.90)
[2020-02-27] MEDS ORDERED: ONDANSETRON HCL 4 MG/2 ML VIAL IV ONE (04:30)
[2020-02-27] MEDS ORDERED: KETOROLAC TROMETH 15 mg/ml 1ML VL IV ONE (04:30)
[2020-02-27] MEDS ORDERED: MORPHINE SULFATE 4 MG/ML SYR/VIAL IV ONE (04:30)
[2020-02-27] MEDS ORDERED: ONDANSETRON HCL 4 MG/2 ML VIAL IV PRN (05:15)
[2020-02-27] MEDS ORDERED: MORPHINE SULF INJ 2 MG/ML SYRINGE 1ML IV PRN (05:15)
[2020-02-27] MEDS ORDERED: POTASSIUM CHL 20 Meq TABLET PO ONE ×3 (05:15→11:34)
[2020-02-27] MEDS ORDERED: NITROGLYCERIN 0.4 MG SL TAB SL PRN (05:15)
[2020-02-27] MEDS ORDERED: TEMAZEPAM 15 MG CAP PO PRN (05:15)
[2020-02-27 05:17] LABS: INR 1.02 (0.9-1.15); Partial Thromboplastin Time 32.6 sec (23.64-32.05)
[2020-02-27] MEDS ORDERED: cloNIDine HCL 0.1 MG TAB PO PRN (05:45)
[2020-02-27] MEDS: PROMETHAZINE W/CODEINE 5 ML ORAL SYRUP PO PRN ×2 (05:49→12:28)
--- NOTE | 2020-02-27 07:00 | NUR ---
received pt from er 17, transported from wheelchair to hospital bed in 12B. respirations are nonlabored on 2Lnc. pt A&Ox4, and is ambulatory.
[2020-02-27] MEDS: IPRATROPIUM BROM 0.5 MG/2.5ML INH SOL NEB SCH ×2 (07:09→13:19)
[2020-02-27] MEDS: ALBUTEROL SULF 2.5 MG/0.5ML(0.5%) NEB SOLN NEB SCH ×2 (07:09→13:19)
[2020-02-27 08:00] VITALS: BP 124/72
--- NOTE | 2020-02-27 08:00 | NUR ---
Opening Shift Note Assumed care of patient, awake, alert and oriented X4. No S/S of distress/SOB or pain. O2 @ 2 LPM via nasal cannula with sats @ 99%. Tele# 34, sinus rhythm @ 97 bpm. IV to left forearm, 22 gauge, patent and saline locked. Instructed on POC and to call for assist PRN, verbalized understanding. Bed locked, in lowest position, call light within reach, will continue to monitor for changes Q1hr and PRN.
[2020-02-27] MEDS ORDERED: cefTRIAXone 1GM/50ML D5W 50 ML IV SCH (09:00)
[2020-02-27 09:36] VITALS: BP 142/86
[2020-02-27] MEDS ORDERED: methylPREDNISolone SOD SUCC 125 MG/2 ML VL IV SCH (10:00)
[2020-02-27] MEDS ORDERED: FAMOTIDINE 20 MG TAB PO SCH (10:00)
[2020-02-27 11:12] LABS: Amphetamine Screen, Urine NEGATIVE (NEGATIVE); Barbiturate Scree,Urine NEGATIVE (NEGATIVE); Benzodiazephine Screen, Urine NEGATIVE (NEGATIVE); Cannabinoid Screen, Urine NEGATIVE (NEGATIVE); Cocaine Screen, Urine NEGATIVE (NEGATIVE); Opiate Scree,Urine POSITIVE (NEGATIVE); Phencyclidine Screen, Urine POSITIVE (NEGATIVE)
[2020-02-27 12:00] VITALS: BP 128/73
[2020-02-27] MEDS ORDERED: ACETAMINOPHEN 325 MG TAB PO PRN (12:15)
--- NOTE | 2020-02-27 12:43 | NUR ---
I received a call from patient letting me know that she is in pain and asked MD for pain medicine and all she was offered was tylenol. Per patient she is going to sign herself out because she is not getting her requested pain medicine. I let her know that I would contact the charge nurse to come and speak with her. Called charge nurse-no answer. I spoke with nurse Madalyn who let me know that charge nurse is there with her and aware of situation.
--- NOTE | 2020-02-27 13:15 | NUR ---
Patient verbalized she wants something stronger than Acetaminophen for pain, specifically Hydromorphone. Dr Klein at bedside advised patient, due to her severe asthma, narcotic pain medication is not advised due to possible respiratory depression/respiratory distress/failure and she will not order this for her. Patient verbalized understanding stating, "I want to leave AMA to go to another hospital". Dr Klein aware and Santiago RN, Charge Nurse verbalized understanding. IV removed with catheter intact and Tele monitor returned to monitor techs. Patient taken to lobby via wheelchair, no distress noted upon discharge.
--- NOTE | 2020-02-27 13:20 | NUR ---
AMA Note YVETTE ENCINAS states they want to leave the hospital Against Medical Advice (AMA). Patient encouraged to stay for further treatment/stabilization. Dr Klein notified of patient's wishes. Patient advised of the risks and benefits of leaving AMA. Patient verbalized understanding. Patient encouraged to return to the ER if symptoms do not improve or worsen.
== END 2020-02-27 13:00 | disposition left against medical advice (07) | DRG 190 ==
LOC: ER 22:11 → TELE 22:12 → TELE-CENTR 02-27 06:45
PROVIDERS: ADMIT Nurse Practitioner; ATTEND Internal Medicine Nephrology
DX: J44.1 Chronic obstructive pulmonary disease with (acute) exacerbation (principal); J96.20 Acute and chronic respiratory failure, unspecified whether with hypoxia or hypercapnia; J45.901 Unspecified asthma with (acute) exacerbation; E87.6 Hypokalemia; I10 Essential (primary) hypertension; E66.9 Obesity, unspecified; F41.9 Anxiety disorder, unspecified; F10.10 Alcohol abuse, uncomplicated; F19.10 Other psychoactive substance abuse, uncomplicated; K21.9 Gastro-esophageal reflux disease without esophagitis; Z79.899 Other long term (current) drug therapy; Z79.51 Long term (current) use of inhaled steroids; Z76.5 Malingerer [conscious simulation]; Z68.30 Body mass index [BMI] 30.0-30.9, adult
CPT/HCPCS: 36415; 71045; 80053; 80307; 81001; 83735; 83880; 84100; 84484; 85025; 85610; 85730; 87070; 87804; 87807; 87880; 93005; 94640; 94644; 96365; 96372; 96375; G0378; J0696; J2405